=== PATIENT | female | born 1960 | race African-American/Black ===

== ENCOUNTER 2018-08-20 09:48 | Emergency (ER) | payer MEDICAID, OTHER ==
[~2018-08-20] VITALS: Ht 165.1 cm; Wt 106.0 kg
[~2018-08-20 09:48] MED LIST: ACET-3161 PO; ASPI-1079 PO; GABAPENTIN PO; LEVPEN SQ; LISINOPRIL PO; METF500T PO
[2018-08-20] MEDS ORDERED: KETOROLAC 30MG/ML VIAL IV STA (10:16)
[2018-08-20] MEDS ORDERED: SODIUM CHLORIDE 0.9% 1,000 ML IV ONE (10:16)
[2018-08-20 10:47] LABS: BASOPHILS % 0.3 % (0.0-2.0); EOSINOPHILS % 4.3 % (0.0-5.0); HEMATOCRIT. 38.8 % (36.0-48.0); LYMPHOCYTES % 38.3 % (20.0-50.0); MEAN CORPUSCULAR HEMOGLOBIN 27.5 pg (28.0-32.0); MONOCYTES % 8.5 % (2.0-8.0); NEUTROPHILS % 48.6 % (40.0-76.0); PLATELET 235 x1000/uL (130-400); RED BLOOD CELL COUNT 4.73 mill/uL (4.2-5.4); RED CELL DISTRIBUTION WIDTH 13.9 % (11.6-14.6)
[2018-08-20 10:52] LABS: CHLORIDE 104 mEq/L (98-107)
[2018-08-20 11:03] LABS: CLARITY URINE CLEAR (CLEAR); COLOR URINE YELLOW (YELLOW); KETONES URINE NEGATIVE (NEGATIVE); LEUKOCYTE ESTERASE URINE 1+ (NEGATIVE); NITRITE URINE NEGATIVE (NEGATIVE); OCCULT BLOOD URINE NEGATIVE (NEGATIVE); PH URINE 5.5 (4.5-8.0); PROTEIN URINE 1+ (NEGATIVE); SPECIFIC GRAVITY URINE 1.017 (1.005-1.030); UROBILINOGEN URINE 0.2 E.U./dL (0.2-1.0)
[2018-08-20 12:40] VITALS: BP 105/66
== END 2018-08-20 12:51 | disposition home or self-care (01) ==
LOC: ER 09:48
DX: N39.0 Urinary tract infection, site not specified (principal); K80.80 Other cholelithiasis without obstruction; K76.0 Fatty (change of) liver, not elsewhere classified; E11.9 Type 2 diabetes mellitus without complications; E78.00 Pure hypercholesterolemia, unspecified; I10 Essential (primary) hypertension; Z79.82 Long term (current) use of aspirin; Z79.4 Long term (current) use of insulin; Z90.710 Acquired absence of both cervix and uterus
CPT/HCPCS: 36415; 76700; 76830; 76856; 80053; 81003; 83690; 85025; 87077; 87086; 87186; 96374; 99285; J1885; J7030

== ENCOUNTER 2018-11-25 11:49 | Emergency (ER) | payer MEDICAID ==
[~2018-11-25] VITALS: Ht 167.6 cm; Wt 110.0 kg
[2018-11-25 12:19] VITALS: BP 167/82
== END 2018-11-25 14:54 | disposition home or self-care (01) ==
LOC: ER 13:26
DX: L63.9 Alopecia areata, unspecified (principal); I88.9 Nonspecific lymphadenitis, unspecified; I10 Essential (primary) hypertension; E11.9 Type 2 diabetes mellitus without complications; Z98.890 Other specified postprocedural states; Z79.82 Long term (current) use of aspirin; Z79.4 Long term (current) use of insulin; Z79.899 Other long term (current) drug therapy
CPT/HCPCS: 99283

== ENCOUNTER 2019-01-19 12:59 | Emergency (ER) | payer MEDICAID ==
[~2019-01-19] VITALS: Ht 170.2 cm; Wt 111.0 kg
[2019-01-19 14:57] LABS: CLARITY URINE CLEAR (CLEAR); COLOR URINE YELLOW (YELLOW); KETONES URINE NEGATIVE (NEGATIVE); LEUKOCYTE ESTERASE URINE NEGATIVE (NEGATIVE); NITRITE URINE NEGATIVE (NEGATIVE); OCCULT BLOOD URINE NEGATIVE (NEGATIVE); PROTEIN URINE NEGATIVE (NEGATIVE); SPECIFIC GRAVITY URINE 1.012 (1.005-1.030); UROBILINOGEN URINE 0.2 E.U./dL (0.2-1.0)
[2019-01-19] MEDS ORDERED: ACETAMINOPHEN 325MG TABLET PO ONE (22:00)
[2019-01-19] MEDS ORDERED: OSELTAMIVIR 75MG CAPSULE PO ONE (22:00)
[2019-01-19] MEDS ORDERED: ONDANSETRON 4MG ODT PO ONE (22:00)
[2019-01-19 23:05] VITALS: BP 110/61
== END 2019-01-19 23:38 | disposition home or self-care (01) ==
LOC: ER 12:59
DX: J10.1 Influenza due to other identified influenza virus with other respiratory manifestations (principal); E11.9 Type 2 diabetes mellitus without complications; I10 Essential (primary) hypertension; E66.01 Morbid (severe) obesity due to excess calories; Z68.38 Body mass index [BMI] 38.0-38.9, adult; Z98.890 Other specified postprocedural states; Z79.4 Long term (current) use of insulin; Z79.82 Long term (current) use of aspirin
CPT/HCPCS: 81003; 87804; 99284; Q0162

== ENCOUNTER 2019-07-31 14:12 | Inpatient (IN) | payer MEDICAID ==
[~2019-07-31] VITALS: Ht 170.2 cm; Wt 107.5 kg
[2019-07-31] MEDS ORDERED: ASPIRIN 81MG TABLET PO ONE (16:15)
[2019-07-31 17:00] LABS: BASOPHILS % 0.4 % (0.0-2.0); HEMATOCRIT. 37.4 % (36.0-48.0); HEMOGLOBIN. 12.5 g/dL (12.0-16.0); LYMPHOCYTES % 42.6 % (20.0-50.0); MEAN CORPUSCULAR HEMOGLOBIN 27.4 pg (28.0-32.0); MEAN CORPUSCULAR VOLUME 82.4 fL (81.0-99.0); MEAN PLATELET VOLUME 10.4 fl (7.4-10.4); MONOCYTES % 8.2 % (2.0-8.0); NEUTROPHILS % 42.8 % (40.0-76.0); PLATELET 202 x1000/uL (130-400); RED BLOOD CELL COUNT 4.54 mill/uL (4.2-5.4); RED CELL DISTRIBUTION WIDTH 14.4 % (11.6-14.6)
[2019-07-31 17:03] LABS: CHLORIDE 109 mEq/L (98-107)
[2019-07-31 17:08] LABS: PARTIAL THROMBOPLASTIN TIME 28.8 sec (23.4-31.0); PROTHROMBIN TIME 10.8 sec (9.6-11.0)
[2019-07-31 17:46] LABS: CLARITY URINE CLEAR (CLEAR); COLOR URINE YELLOW (YELLOW); KETONES URINE NEGATIVE (NEGATIVE); LEUKOCYTE ESTERASE URINE NEGATIVE (NEGATIVE); NITRITE URINE NEGATIVE (NEGATIVE); OCCULT BLOOD URINE NEGATIVE (NEGATIVE); PROTEIN URINE 1+ (NEGATIVE); SPECIFIC GRAVITY URINE 1.021 (1.005-1.030); UROBILINOGEN URINE 0.2 E.U./dL (0.2-1.0)
[2019-07-31] MEDS ORDERED: DEXTROSE 50% WATER 50ML SYRINGE IV PRN (21:15)
[2019-07-31] MEDS ORDERED: KETOROLAC 15MG/ML VIAL IV PRN (21:15)
[2019-07-31] MEDS ORDERED: DOCUSATE SODIUM 100MG CAPSULE PO PRN (21:15)
[2019-07-31] MEDS ORDERED: MAGNESIUM/ALUMINUM HYDROXIDE/SIMETHICONE 30ML UDC PO PRN (21:15)
[2019-07-31] MEDS ORDERED: ACETAMINOPHEN 325MG TABLET PO PRN (21:15)
[2019-07-31] MEDS ORDERED: LORAZEPAM 0.5MG TABLET PO PRN (21:15)
[2019-07-31] MEDS ORDERED: NITROGLYCERIN 0.4MG TABLET SL SL PRN (21:15)
[2019-07-31] MEDS ORDERED: GUAIFENESIN 200MG/10ML SUGAR FREE UDC PO PRN (21:15)
[2019-07-31] MEDS ORDERED: CLONIDINE 0.1MG TABLET PO PRN (21:15)
[2019-07-31] MEDS ORDERED: ZOLPIDEM TARTRATE 5MG TABLET PO PRN (21:15)
[2019-07-31] MEDS ORDERED: IPRATROPIUM/ALBUTEROL 0.5-3(2.5)MG/3ML NEB HHN PRN (21:15)
[2019-07-31] MEDS ORDERED: ONDANSETRON HCL 4MG/2ML INJ IV PRN (21:15)
[2019-07-31] MEDS ORDERED: INSULIN GLARGINE UD 100 UNITS/ML SYR SUBCUT SCH (22:00)
[2019-07-31] MEDS ORDERED: SIMV20TA6 PO (23:27)
[2019-07-31] MEDS ORDERED: INSU100I24 SQ (23:27)
[2019-07-31 23:29] VITALS: BP 142/64
[2019-07-31 23:37] LABS: LDL CHOLESTEROL 84 mg/dL (5-100)
[2019-07-31 23:38] LABS: CREATINE KINASE 128 IU/L (26-192); HDL CHOLESTEROL 35 mg/dL (40-59)
[2019-07-31 23:40] LABS: CREATINE KINASE MB FRACTION < 1.0 ng/mL (0.5-3.6)
[2019-08-01 00:01] VITALS: BP 123/63
[2019-08-01 04:00] VITALS: BP 123/66
[2019-08-01] MEDS ORDERED: BLOOD SUGAR DIAGNOSTIC STRIP TEST SCH (07:10)
[2019-08-01] MEDS ORDERED: INSULIN LISPRO 100 UNITS/ML SUBCUT SCH (07:40)
[2019-08-01 08:00] VITALS: BP 104/68
[2019-08-01] MEDS: FAMOTIDINE 20MG TABLET PO SCH ×2 (09:00→09:35)
[2019-08-01] MEDS ORDERED: METOPROLOL TARTRATE 25MG TABLET PO SCH (09:00)
[2019-08-01] MEDS ORDERED: ENOXAPARIN 30MG/0.3ML SYR SUBCUT SCH (09:00)
[2019-08-01] MEDS ORDERED: ASPIRIN 325MG EC TABLET PO SCH (09:00)
[2019-08-01 09:27] LABS: CREATINE KINASE 102 IU/L (26-192)
[2019-08-01 09:29] LABS: CREATINE KINASE MB FRACTION < 1.0 ng/mL (0.5-3.6)
[2019-08-01 10:59] VITALS: BP 104/68
[2019-08-01] MEDS ORDERED: INSULIN GLARGINE UD 100 UNITS/ML SYR SUBCUT SCH (22:00)
== END 2019-08-01 11:29 | disposition home or self-care (01) | DRG 203 ==
LOC: ER 14:33 → 8WST 20:49 → EDBEDREQ 21:08 → EDBEDREQTM 21:08 → ENRESERV 21:10
PROVIDERS: ADMIT Internal Medicine; ATTEND Internal Medicine
DX: R07.89 Other chest pain (principal); E11.65 Type 2 diabetes mellitus with hyperglycemia; E66.9 Obesity, unspecified; E78.1 Pure hyperglyceridemia; I10 Essential (primary) hypertension; Z82.49 Family history of ischemic heart disease and other diseases of the circulatory system; Z83.3 Family history of diabetes mellitus; Z68.37 Body mass index [BMI] 37.0-37.9, adult; Z79.899 Other long term (current) drug therapy; Z79.82 Long term (current) use of aspirin; Z79.4 Long term (current) use of insulin
CPT/HCPCS: 36415; 71045; 80061; 81003; 82550; 82553; 82962; 83036; 83880; 84484; 93005; 96372; 99285; J1650; J1815

== ENCOUNTER 2019-08-06 08:12 | Emergency (ER) | payer MEDICAID ==
[~2019-08-06] VITALS: Ht 167.6 cm; Wt 108.0 kg
[~2019-08-06 08:12] MED LIST changes: +INSU100I24 SQ; -LEVPEN SQ; -METF500T PO; +SIMV20TA6 PO
[2019-08-06] MEDS ORDERED: SODIUM CHLORIDE 0.9% 1,000 ML IV ONE (08:34)
[2019-08-06] MEDS ORDERED: KETOROLAC 30MG/ML VIAL IV STA (08:34)
[2019-08-06] MEDS ORDERED: METOCLOPRAMIDE HCL 10MG/2ML VIAL IV ONE (08:45)
[2019-08-06 09:03] LABS: BASOPHILS % 0.6 % (0.0-2.0); EOSINOPHILS % 7.4 % (0.0-5.0); HEMATOCRIT. 37.6 % (36.0-48.0); HEMOGLOBIN. 12.8 g/dL (12.0-16.0); LYMPHOCYTES % 43.3 % (20.0-50.0); MEAN CORPUSCULAR HEMOGLOBIN 27.8 pg (28.0-32.0); MEAN CORPUSCULAR VOLUME 81.7 fL (81.0-99.0); MEAN PLATELET VOLUME 9.4 fl (7.4-10.4); MONOCYTES % 8.9 % (2.0-8.0); NEUTROPHILS % 39.8 % (40.0-76.0); PLATELET 202 x1000/uL (130-400); RED CELL DISTRIBUTION WIDTH 14.4 % (11.6-14.6)
[2019-08-06 09:07] LABS: CHLORIDE 105 mEq/L (98-107)
[2019-08-06] MEDS ORDERED: IOHEXOL-350 100 ML BOTTLE ONE (10:01)
[2019-08-06 10:58] VITALS: BP 141/67
== END 2019-08-06 11:04 | disposition home or self-care (01) ==
LOC: ER 08:12
DX: R51 Headache (principal); E11.9 Type 2 diabetes mellitus without complications; Z98.890 Other specified postprocedural states; Z79.4 Long term (current) use of insulin; Z79.82 Long term (current) use of aspirin
CPT/HCPCS: 36415; 70496; 71045; 80053; 84484; 85025; 93005; 96374; 96375; 99284; J1885; J2765; J7030; Q9967

== ENCOUNTER 2022-01-21 17:42 | Inpatient (IN) | payer OTHER ==
[~2022-01-21] VITALS: Ht 167.6 cm; Wt 95.3 kg
[~2022-01-21 17:42] MED LIST changes: +CLOT15CR27 TP; +SIMV-43 PO; -SIMV20TA6 PO
[2022-01-21 17:50] VITALS: BP 131/73
[2022-01-21 20:00] VITALS: BP 136/69
[2022-01-21] MEDS ORDERED: DEXTROSE 50% WATER 50ML SYRINGE IV PRN (22:00)
[2022-01-21] MEDS ORDERED: ONDA4TAB50 MT (22:07)
[2022-01-21] MEDS ORDERED: METH-773 MT (22:07)
[2022-01-21] MEDS ORDERED: ATOR20TA65 MT (22:07)
[2022-01-21] MEDS ORDERED: AMLO10TA80 MT (22:07)
[2022-01-21] MEDS ORDERED: CLON-457 MT (22:07)
[2022-01-21] MEDS ORDERED: CARV3.1242 MT (22:07)
[2022-01-21] MEDS ORDERED: HYDR-4009 MT (22:19)
[2022-01-21] MEDS ORDERED: DULO30CA2 MT (22:19)
[2022-01-21] MEDS ORDERED: DOCU250C69 PO (22:19)
[2022-01-21] MEDS ORDERED: LISI10TA26 PO (22:19)
[2022-01-21] MEDS ORDERED: ENOX40DI8 SQ (22:19)
[2022-01-21] MEDS ORDERED: INSU100V37 SQ (22:19)
[2022-01-21] MEDS ORDERED: GABA-532 MT (22:19)
[2022-01-21] MEDS ORDERED: LANTUSUD SUBCUT (22:19)
[2022-01-21] MEDS: BLOOD SUGAR DIAGNOSTIC STRIP TEST SCH (22:30)
[2022-01-21] MEDS ORDERED: NALOXONE HCL 0.4 MG/ML 1ML VIAL IV PRN (23:45)
[2022-01-22] VITALS: BP 125/68
[2022-01-22] MEDS ORDERED: PIPERACILLIN/TAZOBACTAM 3.375G in DEXT 5% WATER 50ML IV SCH ×2
[2022-01-22] MEDS: INSULIN LISPRO 100 UNITS/ML SUBCUT SCH ×5 (00:27→20:51)
[2022-01-22] MEDS ORDERED: VANCOMYCIN 1500MG in DEXTROSE 5% WATER 250ML IV SCH (01:00)
[2022-01-22 04:00] VITALS: BP 113/60
[2022-01-22] MEDS: BLOOD SUGAR DIAGNOSTIC STRIP TEST SCH ×4 (06:26→20:52)
[2022-01-22] MEDS ORDERED: BLOOD SUGAR DIAGNOSTIC STRIP TEST SCH (06:45)
[2022-01-22 07:10] LABS: BASOPHILS % 0.3 % (0.0-2.0); EOSINOPHILS % 1.7 % (0.0-5.0); HEMOGLOBIN. 8.6 g/dL (12.0-16.0); LYMPHOCYTES % 14.4 % (20.0-50.0); MEAN CORPUSCULAR HEMOGLOBIN 24.8 pg (28.0-32.0); MEAN CORPUSCULAR VOLUME 77.3 fL (81.0-99.0); MEAN PLATELET VOLUME 8.7 fl (7.4-10.4); MONOCYTES % 10.7 % (2.0-8.0); NEUTROPHILS % 72.9 % (40.0-76.0); PLATELET 377 x1000/uL (130-400); RED BLOOD CELL COUNT 3.49 mill/uL (4.2-5.4); RED CELL DISTRIBUTION WIDTH 14.7 % (11.6-14.6)
[2022-01-22] MEDS ORDERED: INSULIN LISPRO 100 UNITS/ML SUBCUT SCH (07:15)
[2022-01-22 08:00] VITALS: BP 127/61
[2022-01-22] MEDS: GABAPENTIN 300MG CAPSULE PO SCH ×3 (09:19→16:43)
[2022-01-22] MEDS: AMLODIPINE 10MG TABLET PO SCH (09:19)
[2022-01-22] MEDS: CARVEDILOL 3.125 MG TABLET PO SCH ×2 (09:19→20:52)
[2022-01-22] MEDS: DULOXETINE HCL 30MG DR CAPSULE PO SCH (09:19)
[2022-01-22] MEDS: ATORVASTATIN CALCIUM 20MG TABLET PO SCH (09:19)
[2022-01-22] MEDS: HYDROCODONE/ACETAMINOPHEN 10/325MG TABLET PO PRN ×2 (09:20→16:44)
[2022-01-22] MEDS ORDERED: PIPERACILLIN/TAZOBACTAM 3.375 G in DEXTROSE 5% WATER 50 ML IV SCH (10:00)
[2022-01-22] MEDS: ENOXAPARIN 30MG/0.3ML SYR SUBCUT SCH ×2 (10:02→20:52)
[2022-01-22 12:00] VITALS: BP 102/53
[2022-01-22 12:58] LABS: CLARITY URINE CLOUDY (CLEAR); COLOR URINE YELLOW (YELLOW); KETONES URINE TRACE (NEGATIVE); LEUKOCYTE ESTERASE URINE TRACE (NEGATIVE); NITRITE URINE NEGATIVE (NEGATIVE); OCCULT BLOOD URINE 3+ (NEGATIVE); PROTEIN URINE 1+ (NEGATIVE); UROBILINOGEN URINE 0.2 E.U./dL (0.2-1.0)
[2022-01-22] MEDS: PIPERACILLIN/TAZOBACTAM 3.375G in DEXT 5% WATER 50ML IV SCH ×2 (15:10→22:12)
[2022-01-22 16:00] VITALS: BP 109/67
[2022-01-22 20:00] VITALS: BP 107/60
[2022-01-23] VITALS: BP 127/70
[2022-01-23] MEDS: HYDROCODONE/ACETAMINOPHEN 10/325MG TABLET PO PRN ×4 (01:04→16:33)
[2022-01-23 04:00] VITALS: BP 129/75
[2022-01-23] MEDS ORDERED: VANCOMYCIN 1G PREMIX 200 ML IV SCH (06:00)
[2022-01-23] MEDS: INSULIN LISPRO 100 UNITS/ML SUBCUT SCH ×4 (06:30→20:48)
[2022-01-23] MEDS: PIPERACILLIN/TAZOBACTAM 3.375G in DEXT 5% WATER 50ML IV SCH ×3 (06:31→21:09)
[2022-01-23] MEDS: BLOOD SUGAR DIAGNOSTIC STRIP TEST SCH ×4 (06:31→20:48)
[2022-01-23 08:00] VITALS: BP 115/61
[2022-01-23] MEDS: CARVEDILOL 3.125 MG TABLET PO SCH ×2 (08:36→21:09)
[2022-01-23] MEDS: DULOXETINE HCL 30MG DR CAPSULE PO SCH (08:36)
[2022-01-23] MEDS: ATORVASTATIN CALCIUM 20MG TABLET PO SCH (08:36)
[2022-01-23] MEDS: ENOXAPARIN 30MG/0.3ML SYR SUBCUT SCH ×2 (08:36→21:08)
[2022-01-23] MEDS: AMLODIPINE 10MG TABLET PO SCH (08:37)
[2022-01-23] MEDS: GABAPENTIN 300MG CAPSULE PO SCH ×3 (08:37→16:32)
[2022-01-23 12:00] VITALS: BP 107/60
[2022-01-23 16:00] VITALS: BP 113/58
[2022-01-23 20:00] VITALS: BP 114/64
[2022-01-24] VITALS: BP 116/65
[2022-01-24 04:00] VITALS: BP 102/62
[2022-01-24] MEDS ORDERED: VANCOMYCIN 1G PREMIX 200 ML IV SCH (06:00)
[2022-01-24] MEDS: PIPERACILLIN/TAZOBACTAM 3.375G in DEXT 5% WATER 50ML IV SCH ×3 (06:31→21:56)
[2022-01-24] MEDS: INSULIN LISPRO 100 UNITS/ML SUBCUT SCH ×4 (06:31→21:57)
[2022-01-24] MEDS: BLOOD SUGAR DIAGNOSTIC STRIP TEST SCH ×4 (06:31→21:56)
[2022-01-24 06:44] LABS: BASOPHILS % 0.4 % (0.0-2.0); EOSINOPHILS % 3.2 % (0.0-5.0); HEMATOCRIT. 24.8 % (36.0-48.0); HEMOGLOBIN. 8.1 g/dL (12.0-16.0); LYMPHOCYTES % 15.3 % (20.0-50.0); MEAN CORPUSCULAR HEMOGLOBIN 24.8 pg (28.0-32.0); MEAN CORPUSCULAR VOLUME 76.1 fL (81.0-99.0); MONOCYTES % 9.3 % (2.0-8.0); NEUTROPHILS % 71.8 % (40.0-76.0); PLATELET 359 x1000/uL (130-400); RED BLOOD CELL COUNT 3.26 mill/uL (4.2-5.4); RED CELL DISTRIBUTION WIDTH 14.8 % (11.6-14.6)
[2022-01-24 07:00] LABS: VANCOMYCIN TROUGH 23.4 ug/mL (5.0-10.0)
[2022-01-24 08:00] VITALS: BP 125/63
[2022-01-24] MEDS: ENOXAPARIN 30MG/0.3ML SYR SUBCUT SCH ×2 (09:22→21:55)
[2022-01-24] MEDS: DULOXETINE HCL 30MG DR CAPSULE PO SCH (09:23)
[2022-01-24] MEDS: ATORVASTATIN CALCIUM 20MG TABLET PO SCH (09:23)
[2022-01-24] MEDS: HYDROCODONE/ACETAMINOPHEN 10/325MG TABLET PO PRN (09:23)
[2022-01-24] MEDS: AMLODIPINE 10MG TABLET PO SCH (09:24)
[2022-01-24] MEDS: CARVEDILOL 3.125 MG TABLET PO SCH ×2 (09:24→21:56)
[2022-01-24] MEDS: GABAPENTIN 300MG CAPSULE PO SCH ×3 (09:24→17:58)
[2022-01-24 12:00] VITALS: BP 104/61
[2022-01-24] MEDS ORDERED: MORPHINE SULFATE 2 MG/ML CPJ (NOT FOR IM USE) IV NR (12:46)
[2022-01-24 16:00] VITALS: BP 135/51
[2022-01-24 20:00] VITALS: BP 137/75
[2022-01-25] VITALS: BP 109/64
[2022-01-25 04:00] VITALS: BP 100/69
[2022-01-25] MEDS: PIPERACILLIN/TAZOBACTAM 3.375G in DEXT 5% WATER 50ML IV SCH ×3 (05:16→21:24)
[2022-01-25] MEDS: BLOOD SUGAR DIAGNOSTIC STRIP TEST SCH ×4 (06:50→21:18)
[2022-01-25] MEDS: INSULIN LISPRO 100 UNITS/ML SUBCUT SCH ×4 (06:50→21:00)
[2022-01-25 08:00] VITALS: BP 169/86
[2022-01-25] MEDS: CARVEDILOL 3.125 MG TABLET PO SCH ×2 (10:13→21:18)
[2022-01-25] MEDS: ENOXAPARIN 30MG/0.3ML SYR SUBCUT SCH ×2 (10:13→21:17)
[2022-01-25] MEDS: AMLODIPINE 10MG TABLET PO SCH (10:14)
[2022-01-25] MEDS: GABAPENTIN 300MG CAPSULE PO SCH ×3 (10:14→17:56)
[2022-01-25] MEDS: DULOXETINE HCL 30MG DR CAPSULE PO SCH (10:14)
[2022-01-25] MEDS: ATORVASTATIN CALCIUM 20MG TABLET PO SCH (10:14)
[2022-01-25 12:00] VITALS: BP 143/79
[2022-01-25] MEDS: VANCOMYCIN 750 MG in DEXT 5% WATER 250 ML IV SCH (13:49)
[2022-01-25] MEDS ORDERED: VANCOMYCIN 750MG PREMIX 150 ML IV SCH (14:00)
[2022-01-25] MEDS: ACETAMINOPHEN 650MG/20.3ML UDC PO PRN (14:57)
[2022-01-25 16:00] VITALS: BP 126/67
[2022-01-25 20:00] VITALS: BP 130/66
[2022-01-25] MEDS: HYDROCODONE/ACETAMINOPHEN 10/325MG TABLET PO PRN (20:14)
[2022-01-26] VITALS: BP 121/82
[2022-01-26 04:00] VITALS: BP 123/61
[2022-01-26] MEDS: INSULIN LISPRO 100 UNITS/ML SUBCUT SCH ×4 (05:33→21:00)
[2022-01-26] MEDS: PIPERACILLIN/TAZOBACTAM 3.375G in DEXT 5% WATER 50ML IV SCH ×3 (05:33→23:51)
[2022-01-26] MEDS: HYDROCODONE/ACETAMINOPHEN 10/325MG TABLET PO PRN ×3 (05:33→18:25)
[2022-01-26] MEDS: BLOOD SUGAR DIAGNOSTIC STRIP TEST SCH ×4 (05:33→21:11)
[2022-01-26 08:00] VITALS: BP 128/70
[2022-01-26] MEDS ORDERED: IOHEXOL-350 100 ML BOTTLE ONE (09:58)
[2022-01-26] MEDS: ENOXAPARIN 30MG/0.3ML SYR SUBCUT SCH ×2 (10:24→21:11)
[2022-01-26] MEDS: CARVEDILOL 3.125 MG TABLET PO SCH ×2 (10:24→21:11)
[2022-01-26] MEDS: DULOXETINE HCL 30MG DR CAPSULE PO SCH (10:24)
[2022-01-26] MEDS: ATORVASTATIN CALCIUM 20MG TABLET PO SCH (10:24)
[2022-01-26] MEDS: GABAPENTIN 300MG CAPSULE PO SCH ×3 (10:24→17:55)
[2022-01-26] MEDS: AMLODIPINE 10MG TABLET PO SCH (10:25)
[2022-01-26 12:00] VITALS: BP 140/78
[2022-01-26] MEDS: VANCOMYCIN 750 MG in DEXT 5% WATER 250 ML IV SCH (14:42)
[2022-01-26 16:00] VITALS: BP 136/64
[2022-01-27] VITALS: BP 127/66
[2022-01-27] MEDS: ACETAMINOPHEN 650MG/20.3ML UDC PO PRN (01:23)
[2022-01-27] MEDS: BLOOD SUGAR DIAGNOSTIC STRIP TEST SCH ×4 (06:18→20:43)
[2022-01-27] MEDS: INSULIN LISPRO 100 UNITS/ML SUBCUT SCH ×4 (06:18→20:43)
[2022-01-27 07:39] LABS: BASOPHILS % 0.2 % (0.0-2.0); EOSINOPHILS % 2.6 % (0.0-5.0); HEMATOCRIT. 26.1 % (36.0-48.0); HEMOGLOBIN. 8.5 g/dL (12.0-16.0); LYMPHOCYTES % 14.7 % (20.0-50.0); MEAN CORPUSCULAR HEMOGLOBIN 24.6 pg (28.0-32.0); MEAN CORPUSCULAR VOLUME 75.8 fL (81.0-99.0); MEAN PLATELET VOLUME 8.8 fl (7.4-10.4); MONOCYTES % 8.8 % (2.0-8.0); NEUTROPHILS % 73.7 % (40.0-76.0); PLATELET 390 x1000/uL (130-400); RED BLOOD CELL COUNT 3.45 mill/uL (4.2-5.4); RED CELL DISTRIBUTION WIDTH 14.8 % (11.6-14.6)
[2022-01-27 07:41] LABS: CHLORIDE 112 mEq/L (98-107)
[2022-01-27 08:00] VITALS: BP 112/73
[2022-01-27] MEDS: GABAPENTIN 300MG CAPSULE PO SCH ×3 (08:40→16:42)
[2022-01-27] MEDS: AMLODIPINE 10MG TABLET PO SCH (08:41)
[2022-01-27] MEDS: DULOXETINE HCL 30MG DR CAPSULE PO SCH (08:41)
[2022-01-27] MEDS: CARVEDILOL 3.125 MG TABLET PO SCH ×2 (08:41→20:42)
[2022-01-27] MEDS: ENOXAPARIN 30MG/0.3ML SYR SUBCUT SCH ×2 (08:41→20:42)
[2022-01-27] MEDS: ATORVASTATIN CALCIUM 20MG TABLET PO SCH (08:44)
[2022-01-27 12:00] VITALS: BP 120/60
[2022-01-27 16:00] VITALS: BP 124/67
[2022-01-27 20:00] VITALS: BP 135/68
[2022-01-28] VITALS: BP 140/69
[2022-01-28 04:00] VITALS: BP 144/77
[2022-01-28] MEDS: BLOOD SUGAR DIAGNOSTIC STRIP TEST SCH ×4 (06:15→21:38)
[2022-01-28] MEDS: INSULIN LISPRO 100 UNITS/ML SUBCUT SCH ×4 (06:16→21:00)
[2022-01-28 08:00] VITALS: BP 146/78
[2022-01-28] MEDS: AMLODIPINE 10MG TABLET PO SCH (09:45)
[2022-01-28] MEDS: GABAPENTIN 300MG CAPSULE PO SCH ×3 (09:45→17:32)
[2022-01-28] MEDS: ATORVASTATIN CALCIUM 20MG TABLET PO SCH (09:45)
[2022-01-28] MEDS: ENOXAPARIN 30MG/0.3ML SYR SUBCUT SCH ×2 (09:45→21:38)
[2022-01-28] MEDS: DULOXETINE HCL 30MG DR CAPSULE PO SCH (09:45)
[2022-01-28] MEDS: CARVEDILOL 3.125 MG TABLET PO SCH ×3 (09:46→21:39)
[2022-01-28 12:00] VITALS: BP 139/75
[2022-01-28 16:00] VITALS: BP 133/72
[2022-01-28 20:00] VITALS: BP 107/81
[2022-01-29] VITALS: BP 146/76
[2022-01-29] MEDS: DEXT 5%/0.45% NACL KCL 20MEQ/L 1,000 ML IV SCH ×3 (00:31→20:55)
[2022-01-29 04:00] VITALS: BP 145/80
[2022-01-29] MEDS: INSULIN LISPRO 100 UNITS/ML SUBCUT SCH ×4 (06:01→20:55)
[2022-01-29] MEDS: BLOOD SUGAR DIAGNOSTIC STRIP TEST SCH ×4 (06:01→20:55)
[2022-01-29 06:27] LABS: BASOPHILS % 0.3 % (0.0-2.0); EOSINOPHILS % 2.1 % (0.0-5.0); HEMATOCRIT. 26.9 % (36.0-48.0); HEMOGLOBIN. 8.8 g/dL (12.0-16.0); LYMPHOCYTES % 20.5 % (20.0-50.0); MEAN CORPUSCULAR HEMOGLOBIN 24.8 pg (28.0-32.0); MEAN CORPUSCULAR VOLUME 75.5 fL (81.0-99.0); MEAN PLATELET VOLUME 8.6 fl (7.4-10.4); MONOCYTES % 8.7 % (2.0-8.0); NEUTROPHILS % 68.4 % (40.0-76.0); PLATELET 415 x1000/uL (130-400); RED BLOOD CELL COUNT 3.56 mill/uL (4.2-5.4); RED CELL DISTRIBUTION WIDTH 15.1 % (11.6-14.6)
[2022-01-29 07:37] LABS: CHLORIDE 113 mEq/L (98-107)
[2022-01-29] MEDS: ENOXAPARIN 30MG/0.3ML SYR SUBCUT SCH ×2 (07:48→21:51)
[2022-01-29 08:00] VITALS: BP 134/77
[2022-01-29] MEDS: AMLODIPINE 10MG TABLET PO SCH (09:00)
[2022-01-29] MEDS: GABAPENTIN 300MG CAPSULE PO SCH ×3 (09:00→17:25)
[2022-01-29] MEDS: CARVEDILOL 3.125 MG TABLET PO SCH ×2 (09:00→21:00)
[2022-01-29] MEDS: ATORVASTATIN CALCIUM 20MG TABLET PO SCH (09:00)
[2022-01-29] MEDS: DULOXETINE HCL 30MG DR CAPSULE PO SCH (09:00)
[2022-01-29] MEDS ORDERED: VANCOMYCIN HCL 1 GM/VIAL ONE (10:35)
[2022-01-29] MEDS ORDERED: LIDOCAINE HCL/EPINEPHRINE 1%-EPI 1:100,000 30 ML VIAL INFIL ONE (10:35)
[2022-01-29] MEDS ORDERED: POLYMYXIN B SULFATE 500000 UNITS/VIAL ONE ×2 (10:36→12:37)
[2022-01-29 12:00] VITALS: BP 135/75
[2022-01-29 12:05] LABS: INR 1.2; PROTHROMBIN TIME 12.7 sec (9.6-11.0)
[2022-01-29] MEDS ORDERED: FENTANYL CITRATE/PF 50MCG/ML 2ML VIAL ONE (12:33)
[2022-01-29] MEDS ORDERED: PROPOFOL 200MG/20ML VIAL IV ONE ×2 (12:33→13:26)
[2022-01-29] MEDS ORDERED: MIDAZOLAM HCL 2 MG/2 ML VIAL ONE (12:33)
[2022-01-29] MEDS ORDERED: ROPIVACAINE HCL 10MG/ML 20 ML VIAL EPI ONE (12:35)
[2022-01-29] MEDS ORDERED: BUPIVACAINE HCL 0.5% (5MG/ML) 50ML ONE (12:53)
[2022-01-29] MEDS ORDERED: DEXAMETHASONE 4MG/ML 1ML VIAL ONE (13:26)
[2022-01-29] MEDS ORDERED: ONDANSETRON HCL 4MG/2ML INJ ONE (13:26)
[2022-01-29] MEDS ORDERED: ONDANSETRON HCL 4MG/2ML INJ IV PRN (14:15)
[2022-01-29] MEDS ORDERED: MEPERIDINE HCL/PF 25MG/ML CPJ IV PRN (14:15)
[2022-01-29] MEDS ORDERED: HYDROMORPHONE HCL/PF 2MG/ML CPJ IV PRN (14:15)
[2022-01-29] MEDS ORDERED: LABETALOL 5MG/ML SYR 20 MG/4 ML SYRINGE IV PRN (14:15)
[2022-01-29 16:00] VITALS: BP 143/88
[2022-01-29] MEDS: HYDROMORPHONE HCL/PF 2MG/ML CPJ IV PRN (17:25)
[2022-01-29 20:00] VITALS: BP 137/69
[2022-01-29] MEDS: CEFAZOLIN 2,000 MG in DEXT 5% WATER 100 ML IV SCH (21:00)
[2022-01-30] VITALS: BP 128/72
[2022-01-30] MEDS: HYDROMORPHONE HCL/PF 2MG/ML CPJ IV PRN ×4 (01:46→20:09)
[2022-01-30] MEDS: HYDROCODONE/ACETAMINOPHEN 5/325MG TABLET PO PRN ×4 (02:23→22:43)
[2022-01-30 04:00] VITALS: BP 153/72
[2022-01-30] MEDS: DEXT 5%/0.45% NACL KCL 20MEQ/L 1,000 ML IV SCH ×2 (05:55→16:52)
[2022-01-30] MEDS: BLOOD SUGAR DIAGNOSTIC STRIP TEST SCH ×4 (05:55→20:08)
[2022-01-30] MEDS: CEFAZOLIN 2,000 MG in DEXT 5% WATER 100 ML IV SCH ×2 (05:55→13:20)
[2022-01-30] MEDS: INSULIN LISPRO 100 UNITS/ML SUBCUT SCH ×4 (05:56→20:08)
[2022-01-30 07:00] LABS: CHLORIDE 113 mEq/L (98-107)
[2022-01-30 07:06] LABS: BASOPHILS % 0.1 % (0.0-2.0); EOSINOPHILS % 0.4 % (0.0-5.0); HEMATOCRIT. 26.6 % (36.0-48.0); HEMOGLOBIN. 8.6 g/dL (12.0-16.0); MEAN CORPUSCULAR HEMOGLOBIN 24.7 pg (28.0-32.0); MEAN CORPUSCULAR VOLUME 76.2 fL (81.0-99.0); MEAN PLATELET VOLUME 8.7 fl (7.4-10.4); MONOCYTES % 9.6 % (2.0-8.0); NEUTROPHILS % 70.9 % (40.0-76.0); PLATELET 402 x1000/uL (130-400); RED BLOOD CELL COUNT 3.49 mill/uL (4.2-5.4); RED CELL DISTRIBUTION WIDTH 14.9 % (11.6-14.6)
[2022-01-30 08:00] VITALS: BP 135/78
[2022-01-30] MEDS: DULOXETINE HCL 30MG DR CAPSULE PO SCH (09:40)
[2022-01-30] MEDS: ATORVASTATIN CALCIUM 20MG TABLET PO SCH (09:40)
[2022-01-30] MEDS: CARVEDILOL 3.125 MG TABLET PO SCH ×2 (09:41→20:09)
[2022-01-30] MEDS: GABAPENTIN 300MG CAPSULE PO SCH ×3 (09:51→16:53)
[2022-01-30] MEDS: ENOXAPARIN 30MG/0.3ML SYR SUBCUT SCH ×2 (09:51→20:08)
[2022-01-30] MEDS: AMLODIPINE 10MG TABLET PO SCH (09:52)
[2022-01-30 12:00] VITALS: BP 157/78
[2022-01-30 16:00] VITALS: BP 135/69
[2022-01-30] MEDS ORDERED: NALOXONE HCL 0.4MG/ML VIAL IV PRN (16:30)
[2022-01-30 20:00] VITALS: BP 114/72
[2022-01-31] VITALS: BP 139/79
[2022-01-31] MEDS: CEFAZOLIN 2,000 MG in DEXT 5% WATER 100 ML IV SCH ×4 (00:57→21:19)
[2022-01-31] MEDS: DEXT 5%/0.45% NACL KCL 20MEQ/L 1,000 ML IV SCH ×3 (00:58→21:16)
[2022-01-31 04:00] VITALS: BP 145/83
[2022-01-31] MEDS: HYDROCODONE/ACETAMINOPHEN 5/325MG TABLET PO PRN ×2 (05:11→12:47)
[2022-01-31] MEDS: INSULIN LISPRO 100 UNITS/ML SUBCUT SCH ×4 (06:59→21:13)
[2022-01-31] MEDS: BLOOD SUGAR DIAGNOSTIC STRIP TEST SCH ×4 (06:59→21:13)
[2022-01-31 08:00] VITALS: BP 118/79
[2022-01-31] MEDS ORDERED: HYDROMORPHONE HCL/PF 2MG/ML CPJ IV SCH (08:00)
[2022-01-31] MEDS: ATORVASTATIN CALCIUM 20MG TABLET PO SCH (09:26)
[2022-01-31] MEDS: ENOXAPARIN 30MG/0.3ML SYR SUBCUT SCH ×2 (09:26→21:12)
[2022-01-31] MEDS: AMLODIPINE 10MG TABLET PO SCH (09:26)
[2022-01-31] MEDS: DULOXETINE HCL 30MG DR CAPSULE PO SCH (09:27)
[2022-01-31] MEDS: CARVEDILOL 3.125 MG TABLET PO SCH ×2 (09:27→21:12)
[2022-01-31] MEDS: GABAPENTIN 300MG CAPSULE PO SCH ×3 (09:29→17:30)
[2022-01-31 12:00] VITALS: BP 132/79
[2022-01-31 16:00] VITALS: BP 121/70
[2022-01-31 19:34] LABS: TOTAL IRON BINDING CAPACITY 115 ug/dL (250-450)
[2022-01-31 20:00] VITALS: BP 121/81
[2022-02-01] VITALS: BP 125/57
[2022-02-01 04:00] VITALS: BP 160/79
[2022-02-01] MEDS: CEFAZOLIN 2,000 MG in DEXT 5% WATER 100 ML IV SCH ×3 (05:35→21:22)
[2022-02-01] MEDS: BLOOD SUGAR DIAGNOSTIC STRIP TEST SCH ×4 (05:53→21:23)
[2022-02-01] MEDS: INSULIN LISPRO 100 UNITS/ML SUBCUT SCH ×4 (06:30→21:23)
[2022-02-01 08:00] VITALS: BP 104/64
[2022-02-01] MEDS: CARVEDILOL 3.125 MG TABLET PO SCH ×2 (09:00→21:21)
[2022-02-01] MEDS: AMLODIPINE 10MG TABLET PO SCH (09:00)
[2022-02-01] MEDS: DULOXETINE HCL 30MG DR CAPSULE PO SCH (09:21)
[2022-02-01] MEDS: ATORVASTATIN CALCIUM 20MG TABLET PO SCH (09:21)
[2022-02-01] MEDS: ENOXAPARIN 30MG/0.3ML SYR SUBCUT SCH ×2 (09:21→21:22)
[2022-02-01] MEDS: DEXT 5%/0.45% NACL KCL 20MEQ/L 1,000 ML IV SCH ×2 (09:21→18:15)
[2022-02-01] MEDS: HYDROCODONE/ACETAMINOPHEN 5/325MG TABLET PO PRN (09:21)
[2022-02-01] MEDS: GABAPENTIN 300MG CAPSULE PO SCH ×3 (09:21→18:15)
[2022-02-01 12:00] VITALS: BP 158/87
[2022-02-01 16:00] VITALS: BP 155/74
[2022-02-01 21:05] VITALS: BP 132/61
[2022-02-02] VITALS: BP 155/76
[2022-02-02 04:00] VITALS: BP 109/56
[2022-02-02] MEDS: DEXT 5%/0.45% NACL KCL 20MEQ/L 1,000 ML IV SCH (06:14)
[2022-02-02] MEDS: CEFAZOLIN 2,000 MG in DEXT 5% WATER 100 ML IV SCH ×3 (06:14→21:17)
[2022-02-02] MEDS: BLOOD SUGAR DIAGNOSTIC STRIP TEST SCH ×4 (06:14→21:15)
[2022-02-02] MEDS: INSULIN LISPRO 100 UNITS/ML SUBCUT SCH ×4 (06:14→21:17)
[2022-02-02 07:57] LABS: BASOPHILS % 0.4 % (0.0-2.0); EOSINOPHILS % 1.5 % (0.0-5.0); HEMATOCRIT. 24.9 % (36.0-48.0); HEMOGLOBIN. 8.1 g/dL (12.0-16.0); LYMPHOCYTES % 17.6 % (20.0-50.0); MEAN CORPUSCULAR HEMOGLOBIN 24.6 pg (28.0-32.0); MEAN CORPUSCULAR VOLUME 75.5 fL (81.0-99.0); MEAN PLATELET VOLUME 8.6 fl (7.4-10.4); NEUTROPHILS % 71.5 % (40.0-76.0); PLATELET 389 x1000/uL (130-400); RED BLOOD CELL COUNT 3.29 mill/uL (4.2-5.4); RED CELL DISTRIBUTION WIDTH 15.5 % (11.6-14.6)
[2022-02-02 08:00] VITALS: BP 145/76
[2022-02-02 08:12] LABS: CHLORIDE 114 mEq/L (98-107)
[2022-02-02] MEDS: ENOXAPARIN 30MG/0.3ML SYR SUBCUT SCH ×2 (10:04→21:17)
[2022-02-02] MEDS: DULOXETINE HCL 30MG DR CAPSULE PO SCH (10:04)
[2022-02-02] MEDS: AMLODIPINE 10MG TABLET PO SCH (10:04)
[2022-02-02] MEDS: GABAPENTIN 300MG CAPSULE PO SCH ×3 (10:04→18:09)
[2022-02-02] MEDS: ATORVASTATIN CALCIUM 20MG TABLET PO SCH (10:04)
[2022-02-02] MEDS: CARVEDILOL 3.125 MG TABLET PO SCH ×2 (10:05→21:16)
[2022-02-02 12:00] VITALS: BP 109/58
[2022-02-02 16:00] VITALS: BP 115/72
[2022-02-02 20:00] VITALS: BP 138/75
[2022-02-03] VITALS: BP 132/73
[2022-02-03 04:00] VITALS: BP 143/98
[2022-02-03] MEDS: BLOOD SUGAR DIAGNOSTIC STRIP TEST SCH ×4 (05:52→21:23)
[2022-02-03] MEDS: CEFAZOLIN 2,000 MG in DEXT 5% WATER 100 ML IV SCH ×2 (06:00→16:46)
[2022-02-03] MEDS: INSULIN LISPRO 100 UNITS/ML SUBCUT SCH ×4 (06:00→21:00)
[2022-02-03 08:00] VITALS: BP 140/74
[2022-02-03] MEDS: ENOXAPARIN 30MG/0.3ML SYR SUBCUT SCH ×2 (10:14→21:11)
[2022-02-03] MEDS: GABAPENTIN 300MG CAPSULE PO SCH ×3 (10:15→17:53)
[2022-02-03] MEDS: ATORVASTATIN CALCIUM 20MG TABLET PO SCH (10:15)
[2022-02-03] MEDS: DULOXETINE HCL 30MG DR CAPSULE PO SCH (10:15)
[2022-02-03] MEDS: AMLODIPINE 10MG TABLET PO SCH (10:15)
[2022-02-03] MEDS: CARVEDILOL 3.125 MG TABLET PO SCH ×2 (10:15→21:12)
[2022-02-03] MEDS: HYDROCODONE/ACETAMINOPHEN 5/325MG TABLET PO PRN (10:42)
[2022-02-03 12:00] VITALS: BP 142/74
[2022-02-03 16:00] VITALS: BP 131/75
[2022-02-03 20:00] VITALS: BP 142/75
[2022-02-03] MEDS: ACETAMINOPHEN 650MG/20.3ML UDC PO PRN (21:41)
[2022-02-04] VITALS: BP 127/74
[2022-02-04 04:00] VITALS: BP 133/76
[2022-02-04] MEDS: INSULIN LISPRO 100 UNITS/ML SUBCUT SCH ×4 (06:55→21:00)
[2022-02-04] MEDS: BLOOD SUGAR DIAGNOSTIC STRIP TEST SCH ×4 (06:55→21:00)
[2022-02-04 08:00] VITALS: BP 152/73
[2022-02-04] MEDS: ATORVASTATIN CALCIUM 20MG TABLET PO SCH (09:05)
[2022-02-04] MEDS: DULOXETINE HCL 30MG DR CAPSULE PO SCH (09:05)
[2022-02-04] MEDS: ENOXAPARIN 30MG/0.3ML SYR SUBCUT SCH ×2 (09:05→22:10)
[2022-02-04] MEDS: CARVEDILOL 3.125 MG TABLET PO SCH ×2 (09:05→22:09)
[2022-02-04] MEDS: GABAPENTIN 300MG CAPSULE PO SCH ×3 (09:06→17:34)
[2022-02-04] MEDS: AMLODIPINE 10MG TABLET PO SCH (09:06)
[2022-02-04 12:00] VITALS: BP 118/71
[2022-02-04 16:00] VITALS: BP 125/65
[2022-02-04 20:00] VITALS: BP 132/70
[2022-02-04 20:53] LABS: HEMATOCRIT 22.6 % (36.0-48.0); HEMOGLOBIN 7.4 g/dL (12.0-16.0)
[2022-02-05] VITALS: BP 129/72
[2022-02-05 04:00] VITALS: BP 140/73
[2022-02-05] MEDS: BLOOD SUGAR DIAGNOSTIC STRIP TEST SCH ×4 (06:20→21:36)
[2022-02-05] MEDS: INSULIN LISPRO 100 UNITS/ML SUBCUT SCH ×4 (06:20→21:38)
[2022-02-05 07:39] LABS: CHLORIDE 114 mEq/L (98-107)
[2022-02-05 07:44] LABS: HEMOGLOBIN. 7.9 g/dL (12.0-16.0); MEAN CORPUSCULAR HEMOGLOBIN 25.1 pg (28.0-32.0); MEAN CORPUSCULAR VOLUME 76.1 fL (81.0-99.0); RED BLOOD CELL COUNT 3.16 mill/uL (4.2-5.4); RED CELL DISTRIBUTION WIDTH 16.5 % (11.6-14.6); TOTAL IRON BINDING CAPACITY 165 ug/dL (250-450)
[2022-02-05 08:00] VITALS: BP 130/71
[2022-02-05] MEDS: ENOXAPARIN 30MG/0.3ML SYR SUBCUT SCH ×2 (09:13→21:36)
[2022-02-05] MEDS: ATORVASTATIN CALCIUM 20MG TABLET PO SCH (09:14)
[2022-02-05] MEDS: GABAPENTIN 300MG CAPSULE PO SCH ×3 (09:14→17:47)
[2022-02-05] MEDS: CARVEDILOL 3.125 MG TABLET PO SCH ×2 (09:14→21:36)
[2022-02-05] MEDS: AMLODIPINE 10MG TABLET PO SCH (09:14)
[2022-02-05] MEDS: DULOXETINE HCL 30MG DR CAPSULE PO SCH (09:14)
[2022-02-05 12:00] VITALS: BP 142/66
[2022-02-05 16:00] VITALS: BP 136/68
[2022-02-05 20:46] VITALS: BP 140/65
[2022-02-06 00:36] VITALS: BP 149/77
[2022-02-06 04:00] VITALS: BP 123/69
[2022-02-06] MEDS: BLOOD SUGAR DIAGNOSTIC STRIP TEST SCH ×4 (06:27→21:00)
[2022-02-06] MEDS: INSULIN LISPRO 100 UNITS/ML SUBCUT SCH ×4 (06:28→21:00)
[2022-02-06 08:00] VITALS: BP 134/69
[2022-02-06] MEDS: ENOXAPARIN 30MG/0.3ML SYR SUBCUT SCH ×2 (09:26→22:50)
[2022-02-06] MEDS: AMLODIPINE 10MG TABLET PO SCH (09:27)
[2022-02-06] MEDS: GABAPENTIN 300MG CAPSULE PO SCH ×3 (09:28→17:27)
[2022-02-06] MEDS: ATORVASTATIN CALCIUM 20MG TABLET PO SCH (09:28)
[2022-02-06] MEDS: DULOXETINE HCL 30MG DR CAPSULE PO SCH (09:28)
[2022-02-06] MEDS: CARVEDILOL 3.125 MG TABLET PO SCH ×2 (09:28→22:51)
[2022-02-06] MEDS ORDERED: LORAZEPAM 2MG/ML CPJ IM PRN (09:30)
[2022-02-06] MEDS: HYDROCODONE/ACETAMINOPHEN 10/325MG TABLET PO PRN ×2 (10:53→17:28)
[2022-02-06 12:00] VITALS: BP 149/69
[2022-02-06] MEDS: DOCUSATE SODIUM 250MG CAPSULE PO SCH (12:44)
[2022-02-06 16:00] VITALS: BP 128/62
[2022-02-06 20:00] VITALS: BP 126/63
[2022-02-07] VITALS: BP 126/75
[2022-02-07] MEDS: PHENYLEPH/PRAMOXIN/GLYCR/PET RECTAL CREAM 26GM PR SCH ×4 (01:01→18:00)
[2022-02-07] MEDS: HYDROCODONE/ACETAMINOPHEN 10/325MG TABLET PO PRN ×2 (01:15→09:06)
[2022-02-07 04:00] VITALS: BP 126/75
[2022-02-07] MEDS: INSULIN LISPRO 100 UNITS/ML SUBCUT SCH ×4 (06:24→21:00)
[2022-02-07] MEDS: BLOOD SUGAR DIAGNOSTIC STRIP TEST SCH ×4 (06:24→21:57)
[2022-02-07 08:00] VITALS: BP 144/66
[2022-02-07] MEDS: GABAPENTIN 300MG CAPSULE PO SCH ×3 (09:05→17:56)
[2022-02-07] MEDS: AMLODIPINE 10MG TABLET PO SCH (09:05)
[2022-02-07] MEDS: DULOXETINE HCL 30MG DR CAPSULE PO SCH (09:06)
[2022-02-07] MEDS: DOCUSATE SODIUM 250MG CAPSULE PO SCH (09:06)
[2022-02-07] MEDS: CARVEDILOL 3.125 MG TABLET PO SCH ×2 (09:06→21:38)
[2022-02-07] MEDS: ENOXAPARIN 30MG/0.3ML SYR SUBCUT SCH ×2 (09:07→21:39)
[2022-02-07] MEDS: ATORVASTATIN CALCIUM 20MG TABLET PO SCH (09:13)
[2022-02-07 12:00] VITALS: BP 138/70
[2022-02-07 16:00] VITALS: BP 100/61
[2022-02-07 20:00] VITALS: BP 137/76
[2022-02-08] VITALS: BP 112/54
[2022-02-08] MEDS: PHENYLEPH/PRAMOXIN/GLYCR/PET RECTAL CREAM 26GM PR SCH ×4 (02:33→18:15)
[2022-02-08 04:00] VITALS: BP 127/62
[2022-02-08] MEDS: INSULIN LISPRO 100 UNITS/ML SUBCUT SCH ×4 (06:39→21:46)
[2022-02-08] MEDS: BLOOD SUGAR DIAGNOSTIC STRIP TEST SCH ×5 (06:39→20:44)
[2022-02-08 08:00] VITALS: BP 101/65
[2022-02-08] MEDS: AMLODIPINE 10MG TABLET PO SCH (08:29)
[2022-02-08] MEDS: DOCUSATE SODIUM 250MG CAPSULE PO SCH (08:31)
[2022-02-08] MEDS: DULOXETINE HCL 30MG DR CAPSULE PO SCH (08:38)
[2022-02-08] MEDS: ATORVASTATIN CALCIUM 20MG TABLET PO SCH (08:38)
[2022-02-08] MEDS: GABAPENTIN 300MG CAPSULE PO SCH ×3 (08:38→18:13)
[2022-02-08] MEDS: ENOXAPARIN 30MG/0.3ML SYR SUBCUT SCH ×2 (08:39→21:47)
[2022-02-08] MEDS: CARVEDILOL 3.125 MG TABLET PO SCH ×2 (09:00→21:47)
[2022-02-08 16:00] VITALS: BP 126/61
[2022-02-08 20:00] VITALS: BP 117/59
[2022-02-09] VITALS: BP 109/56
[2022-02-09] MEDS: PHENYLEPH/PRAMOXIN/GLYCR/PET RECTAL CREAM 26GM PR SCH ×5 (00:07→23:26)
[2022-02-09 04:00] VITALS: BP 119/73
[2022-02-09] MEDS: BLOOD SUGAR DIAGNOSTIC STRIP TEST SCH ×4 (05:59→21:06)
[2022-02-09 07:06] LABS: BASOPHILS % 0.4 % (0.0-2.0); EOSINOPHILS % 2.8 % (0.0-5.0); HEMATOCRIT. 25.9 % (36.0-48.0); HEMOGLOBIN. 8.4 g/dL (12.0-16.0); MEAN CORPUSCULAR VOLUME 76.8 fL (81.0-99.0); MEAN PLATELET VOLUME 8.4 fl (7.4-10.4); MONOCYTES % 12.2 % (2.0-8.0); NEUTROPHILS % 56.6 % (40.0-76.0); PLATELET 358 x1000/uL (130-400); RED BLOOD CELL COUNT 3.37 mill/uL (4.2-5.4); RED CELL DISTRIBUTION WIDTH 17.2 % (11.6-14.6)
[2022-02-09 07:37] LABS: CHLORIDE 111 mEq/L (98-107)
[2022-02-09] MEDS: INSULIN LISPRO 100 UNITS/ML SUBCUT SCH ×4 (07:41→21:00)
[2022-02-09 08:00] VITALS: BP 138/74
[2022-02-09] MEDS: ATORVASTATIN CALCIUM 20MG TABLET PO SCH (08:52)
[2022-02-09] MEDS: AMLODIPINE 10MG TABLET PO SCH (08:52)
[2022-02-09] MEDS: CARVEDILOL 3.125 MG TABLET PO SCH ×2 (08:52→21:07)
[2022-02-09] MEDS: DOCUSATE SODIUM 250MG CAPSULE PO SCH (08:52)
[2022-02-09] MEDS: GABAPENTIN 300MG CAPSULE PO SCH ×3 (08:53→18:05)
[2022-02-09] MEDS: ENOXAPARIN 30MG/0.3ML SYR SUBCUT SCH ×2 (09:00→21:06)
[2022-02-09] MEDS: DULOXETINE HCL 30MG DR CAPSULE PO SCH (11:55)
[2022-02-09 12:00] VITALS: BP 123/67
[2022-02-09] MEDS: ACETAMINOPHEN 650MG/20.3ML UDC PO PRN (14:52)
[2022-02-09 16:00] VITALS: BP 112/67
[2022-02-09 20:00] VITALS: BP 132/72
[2022-02-10] VITALS: BP 122/68
[2022-02-10 04:00] VITALS: BP 146/70
[2022-02-10] MEDS: PHENYLEPH/PRAMOXIN/GLYCR/PET RECTAL CREAM 26GM PR SCH ×3 (06:31→17:17)
[2022-02-10] MEDS: BLOOD SUGAR DIAGNOSTIC STRIP TEST SCH ×4 (06:31→20:41)
[2022-02-10] MEDS: INSULIN LISPRO 100 UNITS/ML SUBCUT SCH ×4 (07:50→20:51)
[2022-02-10 08:00] VITALS: BP 140/81
[2022-02-10] MEDS: CARVEDILOL 3.125 MG TABLET PO SCH ×2 (11:00→20:41)
[2022-02-10] MEDS: ENOXAPARIN 30MG/0.3ML SYR SUBCUT SCH ×2 (11:00→20:41)
[2022-02-10] MEDS: AMLODIPINE 10MG TABLET PO SCH (11:00)
[2022-02-10] MEDS: DULOXETINE HCL 30MG DR CAPSULE PO SCH (11:00)
[2022-02-10] MEDS: DOCUSATE SODIUM 250MG CAPSULE PO SCH (11:00)
[2022-02-10] MEDS: GABAPENTIN 300MG CAPSULE PO SCH ×3 (11:00→17:49)
[2022-02-10] MEDS: ATORVASTATIN CALCIUM 20MG TABLET PO SCH (11:01)
[2022-02-10 12:00] VITALS: BP 135/80
[2022-02-10 16:00] VITALS: BP_SYST 120; BP_SYST 140; BP_DIAS 61; BP_DIAS 87
[2022-02-10 19:32] VITALS: BP 152/80
[2022-02-10] MEDS: ACETAMINOPHEN 650MG/20.3ML UDC PO PRN (20:42)
[2022-02-11] VITALS: BP 115/65
[2022-02-11] MEDS: PHENYLEPH/PRAMOXIN/GLYCR/PET RECTAL CREAM 26GM PR SCH ×4 (00:38→18:31)
[2022-02-11 04:00] VITALS: BP 131/76
[2022-02-11] MEDS: BLOOD SUGAR DIAGNOSTIC STRIP TEST SCH ×4 (07:06→20:57)
[2022-02-11] MEDS: INSULIN LISPRO 100 UNITS/ML SUBCUT SCH ×4 (07:07→21:01)
[2022-02-11 08:00] VITALS: BP 134/82
[2022-02-11] MEDS: DULOXETINE HCL 30MG DR CAPSULE PO SCH (10:57)
[2022-02-11] MEDS: AMLODIPINE 10MG TABLET PO SCH (10:57)
[2022-02-11] MEDS: CARVEDILOL 3.125 MG TABLET PO SCH ×2 (10:57→20:57)
[2022-02-11] MEDS: GABAPENTIN 300MG CAPSULE PO SCH ×3 (10:57→19:15)
[2022-02-11] MEDS: DOCUSATE SODIUM 250MG CAPSULE PO SCH (10:57)
[2022-02-11] MEDS: ATORVASTATIN CALCIUM 20MG TABLET PO SCH (10:57)
[2022-02-11] MEDS: ENOXAPARIN 30MG/0.3ML SYR SUBCUT SCH ×2 (10:58→20:57)
[2022-02-11 12:00] VITALS: BP 121/69
[2022-02-11 16:00] VITALS: BP 133/70
[2022-02-11] MEDS: ACETAMINOPHEN 650MG/20.3ML UDC PO PRN ×2 (16:57→21:04)
[2022-02-11 20:00] VITALS: BP 115/68
[2022-02-12] VITALS: BP 122/69
[2022-02-12] MEDS: PHENYLEPH/PRAMOXIN/GLYCR/PET RECTAL CREAM 26GM PR SCH ×5 (00:06→23:25)
[2022-02-12] MEDS: ACETAMINOPHEN 650MG/20.3ML UDC PO PRN (05:28)
[2022-02-12 06:10] VITALS: BP 132/92
[2022-02-12] MEDS: HYDROCODONE/ACETAMINOPHEN 10/325MG TABLET PO PRN ×2 (06:22→17:38)
[2022-02-12] MEDS: BLOOD SUGAR DIAGNOSTIC STRIP TEST SCH ×4 (06:25→20:52)
[2022-02-12] MEDS: INSULIN LISPRO 100 UNITS/ML SUBCUT SCH ×4 (07:50→21:02)
[2022-02-12 08:00] VITALS: BP 119/63
[2022-02-12] MEDS: ATORVASTATIN CALCIUM 20MG TABLET PO SCH (09:00)
[2022-02-12] MEDS: ENOXAPARIN 30MG/0.3ML SYR SUBCUT SCH ×2 (09:00→20:52)
[2022-02-12] MEDS: GABAPENTIN 300MG CAPSULE PO SCH ×3 (09:00→17:38)
[2022-02-12] MEDS: DOCUSATE SODIUM 250MG CAPSULE PO SCH (09:00)
[2022-02-12] MEDS: CARVEDILOL 3.125 MG TABLET PO SCH ×2 (09:00→20:52)
[2022-02-12] MEDS: DULOXETINE HCL 30MG DR CAPSULE PO SCH (09:00)
[2022-02-12] MEDS: AMLODIPINE 10MG TABLET PO SCH (09:01)
[2022-02-12 12:00] VITALS: BP 118/49
[2022-02-12 16:00] VITALS: BP 103/63
[2022-02-12 20:00] VITALS: BP 126/74
[2022-02-13] VITALS (7 sets, daily range): BP systolic 118–153; BP diastolic 43–87
[2022-02-13] MEDS: PHENYLEPH/PRAMOXIN/GLYCR/PET RECTAL CREAM 26GM PR SCH ×3 (05:36→18:00)
[2022-02-13] MEDS: BLOOD SUGAR DIAGNOSTIC STRIP TEST SCH ×4 (06:58→20:39)
[2022-02-13] MEDS: INSULIN LISPRO 100 UNITS/ML SUBCUT SCH ×4 (08:43→20:46)
[2022-02-13] MEDS: DULOXETINE HCL 30MG DR CAPSULE PO SCH (08:45)
[2022-02-13] MEDS: DOCUSATE SODIUM 250MG CAPSULE PO SCH (08:45)
[2022-02-13] MEDS: ATORVASTATIN CALCIUM 20MG TABLET PO SCH (08:45)
[2022-02-13] MEDS: CARVEDILOL 3.125 MG TABLET PO SCH ×2 (08:45→20:39)
[2022-02-13] MEDS: GABAPENTIN 300MG CAPSULE PO SCH ×3 (08:45→19:08)
[2022-02-13] MEDS: ENOXAPARIN 30MG/0.3ML SYR SUBCUT SCH (08:45)
[2022-02-13] MEDS: AMLODIPINE 10MG TABLET PO SCH (08:45)
[2022-02-13 12:46] LABS: BASOPHILS % 0.3 % (0.0-2.0); EOSINOPHILS % 3.9 % (0.0-5.0); HEMATOCRIT. 26.3 % (36.0-48.0); HEMOGLOBIN. 8.3 g/dL (12.0-16.0); MEAN CORPUSCULAR HEMOGLOBIN 24.6 pg (28.0-32.0); MEAN PLATELET VOLUME 9.1 fl (7.4-10.4); MONOCYTES % 9.8 % (2.0-8.0); PLATELET 318 x1000/uL (130-400); RED BLOOD CELL COUNT 3.37 mill/uL (4.2-5.4); RED CELL DISTRIBUTION WIDTH 17.5 % (11.6-14.6)
[2022-02-13 12:57] LABS: CHLORIDE 109 mEq/L (98-107)
[2022-02-14] VITALS: BP 138/73
[2022-02-14] MEDS: HYDROCODONE/ACETAMINOPHEN 10/325MG TABLET PO PRN ×2 (00:44→09:34)
[2022-02-14] MEDS: PHENYLEPH/PRAMOXIN/GLYCR/PET RECTAL CREAM 26GM PR SCH ×4 (00:45→18:00)
[2022-02-14 04:00] VITALS: BP 146/71
[2022-02-14] MEDS: BLOOD SUGAR DIAGNOSTIC STRIP TEST SCH ×4 (07:19→21:00)
[2022-02-14] MEDS: INSULIN LISPRO 100 UNITS/ML SUBCUT SCH ×4 (07:50→21:00)
[2022-02-14 08:00] VITALS: BP 101/68
[2022-02-14] MEDS: DULOXETINE HCL 30MG DR CAPSULE PO SCH (09:24)
[2022-02-14] MEDS: GABAPENTIN 300MG CAPSULE PO SCH ×3 (09:24→18:01)
[2022-02-14] MEDS: AMLODIPINE 10MG TABLET PO SCH (09:24)
[2022-02-14] MEDS: CARVEDILOL 3.125 MG TABLET PO SCH ×2 (09:24→21:00)
[2022-02-14] MEDS: DOCUSATE SODIUM 250MG CAPSULE PO SCH (09:34)
[2022-02-14] MEDS: ATORVASTATIN CALCIUM 20MG TABLET PO SCH (09:38)
[2022-02-14 12:00] VITALS: BP 122/64
[2022-02-14 16:00] VITALS: BP 140/90
[2022-02-14 20:00] VITALS: BP 136/73
[2022-02-14] MEDS: ENOXAPARIN 30MG/0.3ML SYR SUBCUT SCH (21:00)
[2022-02-15] VITALS: BP 134/70
[2022-02-15] MEDS: HYDROCODONE/ACETAMINOPHEN 10/325MG TABLET PO PRN ×3 (01:45→14:50)
[2022-02-15 04:00] VITALS: BP 137/75
[2022-02-15] MEDS: PHENYLEPH/PRAMOXIN/GLYCR/PET RECTAL CREAM 26GM PR SCH ×4 (06:00→18:19)
[2022-02-15] MEDS: BLOOD SUGAR DIAGNOSTIC STRIP TEST SCH ×4 (06:33→21:00)
[2022-02-15] MEDS: INSULIN LISPRO 100 UNITS/ML SUBCUT SCH ×4 (06:34→21:00)
[2022-02-15 08:00] VITALS: BP 131/75
[2022-02-15] MEDS: GABAPENTIN 300MG CAPSULE PO SCH ×3 (09:07→18:15)
[2022-02-15] MEDS: AMLODIPINE 10MG TABLET PO SCH (09:07)
[2022-02-15] MEDS: ATORVASTATIN CALCIUM 20MG TABLET PO SCH (09:08)
[2022-02-15] MEDS: DOCUSATE SODIUM 250MG CAPSULE PO SCH (09:08)
[2022-02-15] MEDS: CARVEDILOL 3.125 MG TABLET PO SCH ×2 (09:08→22:07)
[2022-02-15] MEDS: DULOXETINE HCL 30MG DR CAPSULE PO SCH (09:08)
[2022-02-15] MEDS: ENOXAPARIN 30MG/0.3ML SYR SUBCUT SCH ×2 (09:09→22:08)
[2022-02-15 12:00] VITALS: BP 117/68
[2022-02-15 16:00] VITALS: BP 101/50
[2022-02-15 20:00] VITALS: BP 123/68
[2022-02-16] VITALS: BP 93/66
[2022-02-16 04:00] VITALS: BP 101/63
[2022-02-16] MEDS: HYDROCODONE/ACETAMINOPHEN 10/325MG TABLET PO PRN (05:51)
[2022-02-16] MEDS: PHENYLEPH/PRAMOXIN/GLYCR/PET RECTAL CREAM 26GM PR SCH ×4 (06:00→17:58)
[2022-02-16 07:05] LABS: BASOPHILS % 0.2 % (0.0-2.0); EOSINOPHILS % 4.6 % (0.0-5.0); HEMATOCRIT. 26.3 % (36.0-48.0); HEMOGLOBIN. 8.4 g/dL (12.0-16.0); LYMPHOCYTES % 41.3 % (20.0-50.0); MEAN CORPUSCULAR HEMOGLOBIN 25.1 pg (28.0-32.0); MEAN CORPUSCULAR VOLUME 78.5 fL (81.0-99.0); MEAN PLATELET VOLUME 9.1 fl (7.4-10.4); MONOCYTES % 10.9 % (2.0-8.0); PLATELET 298 x1000/uL (130-400); RED BLOOD CELL COUNT 3.34 mill/uL (4.2-5.4); RED CELL DISTRIBUTION WIDTH 18.1 % (11.6-14.6)
[2022-02-16 07:12] LABS: CHLORIDE 105 mEq/L (98-107)
[2022-02-16] MEDS: BLOOD SUGAR DIAGNOSTIC STRIP TEST SCH ×3 (07:20→17:57)
[2022-02-16 08:00] VITALS: BP 129/56
[2022-02-16] MEDS: ATORVASTATIN CALCIUM 20MG TABLET PO SCH (08:32)
[2022-02-16] MEDS: DULOXETINE HCL 30MG DR CAPSULE PO SCH (08:32)
[2022-02-16] MEDS: DOCUSATE SODIUM 250MG CAPSULE PO SCH (08:32)
[2022-02-16] MEDS: CARVEDILOL 3.125 MG TABLET PO SCH (08:33)
[2022-02-16] MEDS: GABAPENTIN 300MG CAPSULE PO SCH ×3 (08:34→17:57)
[2022-02-16] MEDS: AMLODIPINE 10MG TABLET PO SCH (08:34)
[2022-02-16] MEDS: ENOXAPARIN 30MG/0.3ML SYR SUBCUT SCH (08:35)
[2022-02-16] MEDS: INSULIN LISPRO 100 UNITS/ML SUBCUT SCH ×3 (08:37→18:05)
[2022-02-16 12:00] VITALS: BP 109/62
[2022-02-16 14:49] VITALS: BP 129/56
[2022-02-16 16:00] VITALS: BP 142/75
[2022-02-16] MEDS ORDERED: DOCU250C14 MT (19:11)
[2022-02-16] MEDS ORDERED: GABA-532 MT (19:11)
[2022-02-16] MEDS ORDERED: AMLO10TA80 MT (19:11)
[2022-02-16] MEDS ORDERED: METF-416 MT (19:11)
[2022-02-16] MEDS ORDERED: ATOR20TA MT (19:11)
[2022-02-16] MEDS ORDERED: GLIP5TAB12 MT (19:11)
== END 2022-02-16 20:38 | disposition home health service (06) | DRG 305 ==
LOC: 5WST 17:42 → 6WST 02-08 12:01 → 6EST 02-13 16:42
PROVIDERS: ADMIT Internal Medicine; ATTEND Internal Medicine
PROC: 0Y6H0Z3 Detachment at Right Lower Leg, Low, Open Approach (ICD-10-PCS; principal; 2022-01-29)
PROC: 02HV33Z Insertion of Infusion Device into Superior Vena Cava, Percutaneous Approach (ICD-10-PCS; 2022-01-31)
PROC: B548ZZA Ultrasonography of Superior Vena Cava, Guidance (ICD-10-PCS; 2022-01-31)
PROC: 0JB70ZZ Excision of Back Subcutaneous Tissue and Fascia, Open Approach (ICD-10-PCS; 2022-02-01)
PROC: 0JB70ZZ Excision of Back Subcutaneous Tissue and Fascia, Open Approach (ICD-10-PCS; 2022-02-09)
DX: T87.89 Other complications of amputation stump (principal); L89.153 Pressure ulcer of sacral region, stage 3; E43 Unspecified severe protein-calorie malnutrition; E11.52 Type 2 diabetes mellitus with diabetic peripheral angiopathy with gangrene; D64.9 Anemia, unspecified; D50.9 Iron deficiency anemia, unspecified; I70.261 Atherosclerosis of native arteries of extremities with gangrene, right leg; S90.32XA Contusion of left foot, initial encounter; E87.8 Other disorders of electrolyte and fluid balance, not elsewhere classified; F03.90 Unspecified dementia, unspecified severity, without behavioral disturbance, psychotic disturbance, mood disturbance, and anxiety; Z20.822 Contact with and (suspected) exposure to COVID-19; E66.9 Obesity, unspecified; Y83.8 Other surgical procedures as the cause of abnormal reaction of the patient, or of later complication, without mention of misadventure at the time of the procedure; E78.5 Hyperlipidemia, unspecified; I10 Essential (primary) hypertension; K80.20 Calculus of gallbladder without cholecystitis without obstruction; Z79.899 Other long term (current) drug therapy; Z79.4 Long term (current) use of insulin; Z68.33 Body mass index [BMI] 33.0-33.9, adult; Z89.611 Acquired absence of right leg above knee; Y92.89 Other specified places as the place of occurrence of the external cause; I70.202 Unspecified atherosclerosis of native arteries of extremities, left leg
CPT/HCPCS: 36415; 71045; 75635; 76937; 80048; 80061; 80202; 81003; 82040; 82607; 82728; 82746; 82962; 83036; 83540; 83550; 84134; 85014; 85018; 85025; 85044; 86850; 86900; 87426; 88307; 88311; 92610; 97162; 97166; 97530; A6261; C1725; J0690; J1100; J1170; J1650; J1815; J2250; J2270; J2405; J2543; J2704; J2795; J3010; J3370; J3490; J7040; J7060; Q9967

== ENCOUNTER 2022-03-05 00:51 | Inpatient (IN) | payer OTHER ==
[~2022-03-05] VITALS: Ht 165.1 cm; Wt 76.2 kg
[~2022-03-05 00:51] MED LIST changes: -ACET-3161 PO; +AMLO10TA80 MT; -ASPI-1079 PO; +ATOR20TA MT; +CARV3.1242 MT; +CLON-457 MT; +DOCU250C14 MT; +DOCU250C69 PO; +DULO30CA2 MT; +ENOX40DI8 SQ; +GABA-532 MT; -GABAPENTIN PO; +GLIP5TAB12 MT; +HYDR-4009 MT; -INSU100I24 SQ; +INSU100V37 SQ; +LISI10TA26 PO; -LISINOPRIL PO; +METF-416 MT; +METH-773 MT; +ONDA4TAB50 MT; -SIMV-43 PO
[2022-03-05] MEDS ORDERED: ONDANSETRON HCL 4MG/2ML INJ IV STA (01:22)
[2022-03-05] MEDS ORDERED: MORPHINE SULFATE 4 MG/ML CPJ (NOT FOR IM USE) IV STA (01:22)
[2022-03-05 01:54] LABS: BASOPHILS % 0.6 % (0.0-2.0); EOSINOPHILS % 2.9 % (0.0-5.0); HEMATOCRIT. 27.2 % (36.0-48.0); HEMOGLOBIN. 8.4 g/dL (12.0-16.0); LYMPHOCYTES % 28.7 % (20.0-50.0); MEAN CORPUSCULAR VOLUME 81.4 fL (81.0-99.0); MEAN PLATELET VOLUME 8.6 fl (7.4-10.4); MONOCYTES % 9.7 % (2.0-8.0); NEUTROPHILS % 58.1 % (40.0-76.0); PLATELET 436 x1000/uL (130-400); RED BLOOD CELL COUNT 3.34 mill/uL (4.2-5.4); RED CELL DISTRIBUTION WIDTH 19.4 % (11.6-14.6)
[2022-03-05 01:56] LABS: CHLORIDE 115 mEq/L (98-107)
[2022-03-05] MEDS ORDERED: DEXTROSE 50% WATER 50ML SYRINGE IV ONE (02:30)
[2022-03-05] MEDS ORDERED: VANCOMYCIN 1G PREMIX 200 ML IV ONE (02:30)
[2022-03-05] MEDS ORDERED: PIPERACILLIN/TAZ 3.375G PREMIX 50 ML IV ONE (02:30)
[2022-03-05] MEDS ORDERED: DEXT 10% WATER 1,000 ML IV ONE (03:15)
[2022-03-05] MEDS ORDERED: ONDANSETRON HCL 4MG/2ML INJ IV SCH (03:30)
[2022-03-05] MEDS ORDERED: MORPHINE SULFATE 4 MG/ML CPJ (NOT FOR IM USE) IV SCH (03:30)
[2022-03-05] MEDS ORDERED: VANCOMYCIN 1GM PMX (XELLIA) 200 ML IV SCH (04:00)
[2022-03-05 09:00] VITALS: BP 144/72
[2022-03-05] MEDS ORDERED: DEXT 5%/0.45% NACL 1000ML 1,000 ML IV SCH (09:30)
[2022-03-05] MEDS ORDERED: ONDANSETRON HCL 4MG/2ML INJ IV PRN (09:30)
[2022-03-05] MEDS ORDERED: ACETAMINOPHEN 325MG TABLET PO PRN (09:30)
[2022-03-05 09:54] VITALS: BP 144/72
[2022-03-05] MEDS: HYDROCODONE/ACETAMINOPHEN 5/325MG TABLET PO PRN ×2 (11:17→16:15)
[2022-03-05] MEDS: BLOOD SUGAR DIAGNOSTIC STRIP TEST SCH ×3 (11:53→21:58)
[2022-03-05 12:30] VITALS: BP 128/59
[2022-03-05] MEDS: GABAPENTIN 300MG CAPSULE PO SCH ×2 (14:08→22:12)
[2022-03-05] MEDS ORDERED: DEXTROSE 10% WATER 500 ML IV ONE (14:45)
[2022-03-05 16:30] VITALS: BP 144/78
[2022-03-05] MEDS ORDERED: DEXTROSE 50% WATER 50ML SYRINGE IV PRN (18:00)
[2022-03-05 19:42] LABS: CLARITY URINE CLOUDY (CLEAR); COLOR URINE YELLOW (YELLOW); KETONES URINE NEGATIVE (NEGATIVE); LEUKOCYTE ESTERASE URINE 2+ (NEGATIVE); NITRITE URINE NEGATIVE (NEGATIVE); OCCULT BLOOD URINE 1+ (NEGATIVE); PROTEIN URINE 1+ (NEGATIVE); SPECIFIC GRAVITY URINE 1.017 (1.005-1.030); UROBILINOGEN URINE 0.2 E.U./dL (0.2-1.0)
[2022-03-05 20:00] VITALS: BP 119/64
[2022-03-05] MEDS ORDERED: NALOXONE HCL 0.4MG/ML VIAL IV PRN (23:30)
[2022-03-06] VITALS: BP 108/69
[2022-03-06] MEDS: HYDROCODONE/ACETAMINOPHEN 5/325MG TABLET PO PRN ×2 (00:22→22:34)
[2022-03-06 04:00] VITALS: BP 120/64
[2022-03-06] MEDS: GABAPENTIN 300MG CAPSULE PO SCH ×3 (06:00→21:06)
[2022-03-06] MEDS: BLOOD SUGAR DIAGNOSTIC STRIP TEST SCH ×4 (06:49→21:14)
[2022-03-06 08:03] VITALS: BP 144/68
[2022-03-06 12:00] VITALS: BP 109/72
[2022-03-06] MEDS ORDERED: MIDAZOLAM HCL 5 MG/5 ML VIAL ONE (12:58)
[2022-03-06] MEDS ORDERED: FENTANYL CITRATE/PF 50MCG/ML 2ML VIAL ONE (12:58)
[2022-03-06] MEDS ORDERED: IOHEXOL-300 100 ML BOTTLE ONE (13:09)
[2022-03-06] MEDS ORDERED: IODIXANOL 320MG/ML 100 ML BOTTLE IV ONE (13:10)
[2022-03-06] MEDS ORDERED: LIDOCAINE HCL 1% 20ML VIAL (Pyxis) INJ ONE (13:11)
[2022-03-06] MEDS ORDERED: CEFAZOLIN SODIUM 1000MG/VIAL ONE (13:14)
[2022-03-06] MEDS ORDERED: CEFAZOLIN 1000MG PREMIX 50 ML IV ONE (13:15)
[2022-03-06 16:00] VITALS: BP 143/84
[2022-03-06 20:00] VITALS: BP 123/63
[2022-03-07] VITALS: BP 108/79
[2022-03-07 04:00] VITALS: BP 108/57
[2022-03-07] MEDS: GABAPENTIN 300MG CAPSULE PO SCH ×3 (07:00→20:37)
[2022-03-07] MEDS: BLOOD SUGAR DIAGNOSTIC STRIP TEST SCH ×4 (07:05→20:57)
[2022-03-07 08:00] VITALS: BP 129/68
[2022-03-07 12:00] VITALS: BP 136/69
[2022-03-07] MEDS: HYDROCODONE/ACETAMINOPHEN 5/325MG TABLET PO PRN ×2 (13:21→20:37)
[2022-03-07 16:00] VITALS: BP 116/71
[2022-03-07 20:00] VITALS: BP 133/81
[2022-03-08 04:00] VITALS: BP 129/69
[2022-03-08] MEDS: BLOOD SUGAR DIAGNOSTIC STRIP TEST SCH ×3 (06:54→20:27)
[2022-03-08] MEDS: GABAPENTIN 300MG CAPSULE PO SCH ×3 (06:54→21:28)
[2022-03-08 08:00] VITALS: BP 135/75
[2022-03-08] MEDS: HYDROCODONE/ACETAMINOPHEN 5/325MG TABLET PO PRN (10:52)
[2022-03-08 12:00] VITALS: BP 120/57
[2022-03-08 16:00] VITALS: BP 115/64
[2022-03-08 17:46] VITALS: BP 115/64
[2022-03-08 20:00] VITALS: BP 119/73
== END 2022-03-08 22:05 | disposition home health service (06) | DRG 197 ==
LOC: ER 01:00 → MICUSO 03:09 → 7WST 09:21
PROVIDERS: ADMIT Internal Medicine; ATTEND Internal Medicine
PROC: B41G1ZZ Fluoroscopy of Left Lower Extremity Arteries using Low Osmolar Contrast (ICD-10-PCS; principal; 2022-03-06)
DX: I70.262 Atherosclerosis of native arteries of extremities with gangrene, left leg (principal); N17.0 Acute kidney failure with tubular necrosis; E43 Unspecified severe protein-calorie malnutrition; E11.649 Type 2 diabetes mellitus with hypoglycemia without coma; E11.52 Type 2 diabetes mellitus with diabetic peripheral angiopathy with gangrene; D64.9 Anemia, unspecified; E11.42 Type 2 diabetes mellitus with diabetic polyneuropathy; E11.621 Type 2 diabetes mellitus with foot ulcer; L97.529 Non-pressure chronic ulcer of other part of left foot with unspecified severity; E66.9 Obesity, unspecified; E87.8 Other disorders of electrolyte and fluid balance, not elsewhere classified; I10 Essential (primary) hypertension; M17.12 Unilateral primary osteoarthritis, left knee; Z89.611 Acquired absence of right leg above knee; Z83.3 Family history of diabetes mellitus; Z82.49 Family history of ischemic heart disease and other diseases of the circulatory system; Z68.28 Body mass index [BMI] 28.0-28.9, adult
CPT/HCPCS: 36245; 36415; 73560; 75710; 80053; 81003; 82962; 83605; 85025; 87426; 93005; 99291; C1769; C1887; C1893; J0690; J1644; J2250; J2270; J2405; J2543; J3010; J3370; J3490; Q9967

== ENCOUNTER 2022-04-03 13:02 | Inpatient (IN) | payer OTHER ==
[~2022-04-03] VITALS: Ht 168.9 cm; Wt 71.7 kg
[~2022-04-03 13:02] MED LIST changes: -GLIP5TAB12 MT
[2022-04-03 14:34] LABS: BASOPHILS % 0.2 % (0.0-2.0); EOSINOPHILS % 2.7 % (0.0-5.0); HEMATOCRIT. 29.4 % (36.0-48.0); HEMOGLOBIN. 9.4 g/dL (12.0-16.0); LYMPHOCYTES % 22.9 % (20.0-50.0); MEAN CORPUSCULAR HEMOGLOBIN 26.1 pg (28.0-32.0); MEAN CORPUSCULAR VOLUME 81.4 fL (81.0-99.0); MEAN PLATELET VOLUME 8.2 fl (7.4-10.4); MONOCYTES % 8.7 % (2.0-8.0); NEUTROPHILS % 65.5 % (40.0-76.0); PLATELET 475 x1000/uL (130-400); RED BLOOD CELL COUNT 3.61 mill/uL (4.2-5.4); RED CELL DISTRIBUTION WIDTH 18.9 % (11.6-14.6)
[2022-04-03 14:42] LABS: CHLORIDE 114 mEq/L (98-107)
[2022-04-03] MEDS ORDERED: MORPHINE SULFATE 4 MG/ML CPJ (NOT FOR IM USE) IV STA (16:53)
[2022-04-03] MEDS ORDERED: ONDANSETRON HCL 4MG/2ML INJ IV STA (16:53)
[2022-04-03] MEDS ORDERED: SODIUM CHLORIDE 0.9% 1,000 ML IV ONE (17:00)
[2022-04-03] MEDS ORDERED: PIPERACILLIN/TAZ 3.375G PREMIX 50 ML IV ONE (17:00)
[2022-04-03] MEDS ORDERED: VANCOMYCIN 1G PREMIX 200 ML IV ONE (17:00)
[2022-04-03] MEDS ORDERED: SODIUM CHLORIDE 0.9% 1000ML BAG (SEPSIS BOLUS) IV NR (17:30)
[2022-04-03 21:28] LABS: CLARITY URINE CLEAR (CLEAR); COLOR URINE YELLOW (YELLOW); KETONES URINE NEGATIVE (NEGATIVE); LEUKOCYTE ESTERASE URINE 1+ (NEGATIVE); NITRITE URINE NEGATIVE (NEGATIVE); OCCULT BLOOD URINE TRACE (NEGATIVE); PROTEIN URINE TRACE (NEGATIVE); SPECIFIC GRAVITY URINE 1.015 (1.005-1.030); UROBILINOGEN URINE 0.2 E.U./dL (0.2-1.0)
[2022-04-03] MEDS: CLONIDINE 0.1MG TABLET PO PRN (22:55)
[2022-04-03] MEDS: MORPHINE SULFATE 2 MG/ML CPJ (NOT FOR IM USE) IV PRN (22:56)
[2022-04-04] VITALS (7 sets, daily range): BP systolic 129–156; BP diastolic 71–90
[2022-04-04] MEDS ORDERED: DEXTROSE 50% WATER 50ML SYRINGE IV PRN (06:00)
[2022-04-04] MEDS: BLOOD SUGAR DIAGNOSTIC STRIP TEST SCH ×4 (06:57→21:00)
[2022-04-04] MEDS ORDERED: PIPERACILLIN/TAZOBACTAM 3.375G in DEXT 5% WATER 50ML IV SCH (07:30)
[2022-04-04] MEDS ORDERED: VANCOMYCIN 750 MG in DEXT 5% WATER 250 ML IV SCH (08:00)
[2022-04-04] MEDS: INSULIN LISPRO 100 UNITS/ML SUBCUT SCH ×4 (08:10→21:00)
[2022-04-04] MEDS: HEPARIN 5000 UNITS/ML VIAL SUBCUT SCH ×2 (08:51→21:50)
[2022-04-04 11:11] LABS: BG BASE EXCESS -3.8 mmol/L (-2.0-2.0); BG CARBOXYHEMOGLOBIN 0.4 % (0.5-1.5); BG DEOXYHEMOGLOBIN 1.7 % (0.0-5.0); BG FRACTION INSPIRED OXYGEN 32; BG HCO3 ACT 20.7 mmol/L (22.0-26.0); BG METHEMOGLOBIN 0.2 % (0.0-1.5); BG OXYGEN SATURATION 98.3 % (92.0-98.5); BG OXYHEMOGLOBIN 97.7 % (94.0-97.0); BG PCO2 34.9 mmHg (35.0-45.0); BG PH 7.391 (7.350-7.450); BG PO2 114.5 mmHg (75.0-100.0); BG SAMPLE SITE RIGHT RADIAL; BG VENT MODE NASAL CANNULA
[2022-04-04] MEDS: DULOXETINE HCL 30MG DR CAPSULE PO SCH (14:30)
[2022-04-04] MEDS: CARVEDILOL 3.125 MG TABLET PO SCH (16:53)
[2022-04-04 17:10] LABS: *AMPHETAMINES SCREEN URINE NEGATIVE (NEGATIVE); *BARBITURATES SCREEN URINE NEGATIVE (NEGATIVE); *BENZODIAZEPINES SCREEN URINE NEGATIVE (NEGATIVE); *COCAINE SCREEN URINE NEGATIVE (NEGATIVE); CANNABINOID URINE SCREEN NEGATIVE (NEGATIVE); METHADONE URINE SCREEN NEGATIVE (NEGATIVE); OPIATES URINE SCREEN PRESUMTIVE POSITIVE (NEGATIVE); PHENCYCLIDINE URINE SCREEN NEGATIVE (NEGATIVE)
[2022-04-04] MEDS: MORPHINE SULFATE 2 MG/ML CPJ (NOT FOR IM USE) IV PRN (21:49)
[2022-04-04] MEDS: ATORVASTATIN CALCIUM 20MG TABLET PO SCH (21:50)
[2022-04-05 04:00] VITALS: BP 143/84
[2022-04-05] MEDS: NITROGLYCERIN OINT 1GM/INCH UDPKT TD SCH ×2 (06:00→17:21)
[2022-04-05] MEDS: BLOOD SUGAR DIAGNOSTIC STRIP TEST SCH ×4 (06:03→21:52)
[2022-04-05 08:00] VITALS: BP 163/85
[2022-04-05] MEDS: INSULIN LISPRO 100 UNITS/ML SUBCUT SCH ×4 (08:10→21:00)
[2022-04-05] MEDS: CLONIDINE 0.1MG TABLET PO PRN ×2 (08:24→08:25)
[2022-04-05] MEDS: CARVEDILOL 3.125 MG TABLET PO SCH ×2 (08:25→16:42)
[2022-04-05] MEDS: DULOXETINE HCL 30MG DR CAPSULE PO SCH (08:25)
[2022-04-05] MEDS: HEPARIN 5000 UNITS/ML VIAL SUBCUT SCH ×2 (08:26→21:49)
[2022-04-05 12:00] VITALS: BP 147/78
[2022-04-05] MEDS: MORPHINE SULFATE 2 MG/ML CPJ (NOT FOR IM USE) IV PRN ×2 (12:01→21:49)
[2022-04-05] MEDS ORDERED: LIDOCAINE HCL/PF 1% 10 MG/ML 5ML VIAL ONE ×2 (12:14→13:56)
[2022-04-05 16:00] VITALS: BP 159/87
[2022-04-05 17:03] LABS: BASOPHILS % 0.5 % (0.0-2.0); EOSINOPHILS % 4.1 % (0.0-5.0); MEAN CORPUSCULAR HEMOGLOBIN 25.8 pg (28.0-32.0); MEAN CORPUSCULAR VOLUME 80.8 fL (81.0-99.0); MEAN PLATELET VOLUME 8.9 fl (7.4-10.4); MONOCYTES % 12.1 % (2.0-8.0); NEUTROPHILS % 46.3 % (40.0-76.0); PLATELET 330 x1000/uL (130-400); RED CELL DISTRIBUTION WIDTH 18.1 % (11.6-14.6)
[2022-04-05 17:21] LABS: CHLORIDE 110 mEq/L (98-107)
[2022-04-05 20:00] VITALS: BP 160/85
[2022-04-05] MEDS: ATORVASTATIN CALCIUM 20MG TABLET PO SCH (21:49)
[2022-04-06] VITALS: BP 166/76
[2022-04-06] MEDS: CLONIDINE 0.1MG TABLET PO PRN (03:31)
[2022-04-06] MEDS: MORPHINE SULFATE 2 MG/ML CPJ (NOT FOR IM USE) IV PRN (03:56)
[2022-04-06 04:00] VITALS: BP 169/113
[2022-04-06] MEDS: NITROGLYCERIN OINT 1GM/INCH UDPKT TD SCH ×2 (06:22→17:54)
[2022-04-06 07:13] LABS: BASOPHILS % 0.2 % (0.0-2.0); EOSINOPHILS % 2.6 % (0.0-5.0); HEMATOCRIT. 24.5 % (36.0-48.0); HEMOGLOBIN. 8.1 g/dL (12.0-16.0); LYMPHOCYTES % 31.9 % (20.0-50.0); MEAN CORPUSCULAR VOLUME 78.9 fL (81.0-99.0); MEAN PLATELET VOLUME 8.3 fl (7.4-10.4); MONOCYTES % 12.1 % (2.0-8.0); NEUTROPHILS % 53.2 % (40.0-76.0); PLATELET 356 x1000/uL (130-400); RED BLOOD CELL COUNT 3.11 mill/uL (4.2-5.4); RED CELL DISTRIBUTION WIDTH 17.6 % (11.6-14.6)
[2022-04-06 07:16] LABS: CHLORIDE 109 mEq/L (98-107)
[2022-04-06] MEDS: BLOOD SUGAR DIAGNOSTIC STRIP TEST SCH ×4 (07:40→21:00)
[2022-04-06 08:00] VITALS: BP 157/99
[2022-04-06] MEDS: INSULIN LISPRO 100 UNITS/ML SUBCUT SCH ×4 (08:10→21:00)
[2022-04-06] MEDS: CARVEDILOL 3.125 MG TABLET PO SCH ×2 (09:36→17:54)
[2022-04-06] MEDS: DULOXETINE HCL 30MG DR CAPSULE PO SCH (09:36)
[2022-04-06] MEDS: HEPARIN 5000 UNITS/ML VIAL SUBCUT SCH ×2 (09:37→22:09)
[2022-04-06 16:00] VITALS: BP 159/92
[2022-04-06 20:00] VITALS: BP 143/78
[2022-04-06] MEDS: ATORVASTATIN CALCIUM 20MG TABLET PO SCH (22:09)
[2022-04-07] VITALS: BP 154/97
[2022-04-07 04:00] VITALS: BP 144/62
[2022-04-07] MEDS: NITROGLYCERIN OINT 1GM/INCH UDPKT TD SCH ×2 (06:27→18:40)
[2022-04-07 06:46] LABS: BASOPHILS % 0.3 % (0.0-2.0); EOSINOPHILS % 3.6 % (0.0-5.0); HEMOGLOBIN. 8.5 g/dL (12.0-16.0); LYMPHOCYTES % 39.1 % (20.0-50.0); MEAN CORPUSCULAR HEMOGLOBIN 26.1 pg (28.0-32.0); MEAN CORPUSCULAR VOLUME 79.9 fL (81.0-99.0); MEAN PLATELET VOLUME 8.1 fl (7.4-10.4); MONOCYTES % 12.1 % (2.0-8.0); NEUTROPHILS % 44.9 % (40.0-76.0); PLATELET 358 x1000/uL (130-400); RED BLOOD CELL COUNT 3.25 mill/uL (4.2-5.4); RED CELL DISTRIBUTION WIDTH 17.7 % (11.6-14.6)
[2022-04-07] MEDS: BLOOD SUGAR DIAGNOSTIC STRIP TEST SCH ×4 (06:48→21:08)
[2022-04-07 07:05] LABS: CHLORIDE 109 mEq/L (98-107)
[2022-04-07 08:00] VITALS: BP 156/77
[2022-04-07] MEDS: INSULIN LISPRO 100 UNITS/ML SUBCUT SCH ×4 (08:10→21:00)
[2022-04-07] MEDS: DULOXETINE HCL 30MG DR CAPSULE PO SCH (10:11)
[2022-04-07] MEDS: CARVEDILOL 3.125 MG TABLET PO SCH ×2 (10:11→17:02)
[2022-04-07] MEDS: HEPARIN 5000 UNITS/ML VIAL SUBCUT SCH ×2 (10:12→21:09)
[2022-04-07 12:55] VITALS: BP 152/72
[2022-04-07 16:30] VITALS: BP 162/99
[2022-04-07] MEDS: MORPHINE SULFATE 2 MG/ML CPJ (NOT FOR IM USE) IV PRN (17:03)
[2022-04-07 20:00] VITALS: BP 149/92
[2022-04-07] MEDS ORDERED: NALOXONE HCL 0.4MG/ML VIAL IV PRN (21:00)
[2022-04-07] MEDS: ATORVASTATIN CALCIUM 20MG TABLET PO SCH (21:08)
[2022-04-08] VITALS (7 sets, daily range): BP systolic 104–167; BP diastolic 62–91
[2022-04-08] MEDS: CLONIDINE 0.1MG TABLET PO PRN (00:50)
[2022-04-08] MEDS: MORPHINE SULFATE 2 MG/ML CPJ (NOT FOR IM USE) IV PRN ×3 (00:50→22:15)
[2022-04-08] MEDS: NITROGLYCERIN OINT 1GM/INCH UDPKT TD SCH ×2 (05:48→17:57)
[2022-04-08 06:14] LABS: CHLORIDE 108 mEq/L (98-107)
[2022-04-08] MEDS: BLOOD SUGAR DIAGNOSTIC STRIP TEST SCH ×4 (06:16→22:12)
[2022-04-08 06:26] LABS: BASOPHILS % 0.4 % (0.0-2.0); EOSINOPHILS % 3.7 % (0.0-5.0); HEMATOCRIT. 25.1 % (36.0-48.0); HEMOGLOBIN. 8.3 g/dL (12.0-16.0); LYMPHOCYTES % 31.6 % (20.0-50.0); MEAN CORPUSCULAR HEMOGLOBIN 26.4 pg (28.0-32.0); MEAN CORPUSCULAR VOLUME 79.9 fL (81.0-99.0); MEAN PLATELET VOLUME 8.7 fl (7.4-10.4); MONOCYTES % 14.2 % (2.0-8.0); NEUTROPHILS % 50.1 % (40.0-76.0); PLATELET 331 x1000/uL (130-400); RED BLOOD CELL COUNT 3.14 mill/uL (4.2-5.4); RED CELL DISTRIBUTION WIDTH 17.8 % (11.6-14.6)
[2022-04-08] MEDS: INSULIN LISPRO 100 UNITS/ML SUBCUT SCH ×4 (07:30→22:12)
[2022-04-08] MEDS: DULOXETINE HCL 30MG DR CAPSULE PO SCH (09:46)
[2022-04-08] MEDS: HEPARIN 5000 UNITS/ML VIAL SUBCUT SCH ×2 (09:46→22:12)
[2022-04-08] MEDS: CARVEDILOL 3.125 MG TABLET PO SCH ×2 (09:46→17:57)
[2022-04-08] MEDS: ATORVASTATIN CALCIUM 20MG TABLET PO SCH (22:17)
[2022-04-08] MEDS ORDERED: NALOXONE HCL 0.4MG/ML VIAL IV PRN (23:15)
[2022-04-09] VITALS: BP 148/95
[2022-04-09 04:00] VITALS: BP 158/88
[2022-04-09] MEDS: NITROGLYCERIN OINT 1GM/INCH UDPKT TD SCH ×2 (05:32→17:15)
[2022-04-09 06:16] LABS: HEMATOCRIT. 26.2 % (36.0-48.0); HEMOGLOBIN. 8.6 g/dL (12.0-16.0); MEAN CORPUSCULAR HEMOGLOBIN 26.2 pg (28.0-32.0); MEAN CORPUSCULAR VOLUME 79.9 fL (81.0-99.0); MEAN PLATELET VOLUME 8.3 fl (7.4-10.4); PLATELET 332 x1000/uL (130-400); RED BLOOD CELL COUNT 3.28 mill/uL (4.2-5.4); RED CELL DISTRIBUTION WIDTH 17.5 % (11.6-14.6)
[2022-04-09] MEDS: BLOOD SUGAR DIAGNOSTIC STRIP TEST SCH ×4 (06:20→21:14)
[2022-04-09 07:47] LABS: CHLORIDE 107 mEq/L (98-107)
[2022-04-09] MEDS: INSULIN LISPRO 100 UNITS/ML SUBCUT SCH ×4 (07:49→21:00)
[2022-04-09 07:53] LABS: HDL CHOLESTEROL 37 mg/dL (40-59); LDL CHOLESTEROL 82 mg/dL (5-100)
[2022-04-09 08:00] VITALS: BP 125/73
[2022-04-09] MEDS: DULOXETINE HCL 30MG DR CAPSULE PO SCH (08:06)
[2022-04-09] MEDS: CARVEDILOL 3.125 MG TABLET PO SCH ×2 (08:08→17:15)
[2022-04-09] MEDS: MORPHINE SULFATE 2 MG/ML CPJ (NOT FOR IM USE) IV PRN ×2 (08:09→22:11)
[2022-04-09] MEDS: HEPARIN 5000 UNITS/ML VIAL SUBCUT SCH ×2 (08:10→21:00)
[2022-04-09 11:32] LABS: PLATELET ESTIMATE NORMAL
[2022-04-09 12:00] VITALS: BP 146/81
[2022-04-09 16:00] VITALS: BP 152/77
[2022-04-09] MEDS ORDERED: LACTULOSE 20G/30ML UDC PO PRN (18:00)
[2022-04-09] MEDS ORDERED: DOCUSATE SODIUM 100MG CAPSULE PO PRN (18:00)
[2022-04-09 20:00] VITALS: BP 143/87
[2022-04-09] MEDS: ATORVASTATIN CALCIUM 20MG TABLET PO SCH (21:21)
[2022-04-10] VITALS: BP 167/82
[2022-04-10] MEDS: CLONIDINE 0.1MG TABLET PO PRN ×2 (00:43→22:08)
[2022-04-10 04:00] VITALS: BP 168/86
[2022-04-10] MEDS: NITROGLYCERIN OINT 1GM/INCH UDPKT TD SCH ×2 (05:54→17:46)
[2022-04-10] MEDS: BLOOD SUGAR DIAGNOSTIC STRIP TEST SCH ×4 (06:44→21:00)
[2022-04-10] MEDS: INSULIN LISPRO 100 UNITS/ML SUBCUT SCH ×4 (08:10→21:00)
[2022-04-10] MEDS: DULOXETINE HCL 30MG DR CAPSULE PO SCH (09:31)
[2022-04-10] MEDS: CARVEDILOL 3.125 MG TABLET PO SCH ×2 (09:32→17:46)
[2022-04-10] MEDS: MORPHINE SULFATE 2 MG/ML CPJ (NOT FOR IM USE) IV PRN (09:32)
[2022-04-10] MEDS: HEPARIN 5000 UNITS/ML VIAL SUBCUT SCH (09:33)
[2022-04-10 12:00] VITALS: BP 132/66
[2022-04-10] MEDS ORDERED: ACETAMINOPHEN 650MG/20.3ML UDC PO PRN (14:00)
[2022-04-10] MEDS: HYDROCODONE/ACETAMINOPHEN 5/325MG TABLET PO PRN ×2 (14:05→22:13)
[2022-04-10 16:00] VITALS: BP 159/78
[2022-04-10 20:00] VITALS: BP 160/87
[2022-04-10] MEDS: ATORVASTATIN CALCIUM 20MG TABLET PO SCH (22:08)
[2022-04-11] VITALS (7 sets, daily range): BP systolic 134–163; BP diastolic 68–92
[2022-04-11] MEDS: NITROGLYCERIN OINT 1GM/INCH UDPKT TD SCH ×2 (06:03→18:00)
[2022-04-11] MEDS: BLOOD SUGAR DIAGNOSTIC STRIP TEST SCH ×4 (07:55→20:18)
[2022-04-11] MEDS: INSULIN LISPRO 100 UNITS/ML SUBCUT SCH ×4 (08:10→20:19)
[2022-04-11] MEDS: DULOXETINE HCL 30MG DR CAPSULE PO SCH (10:19)
[2022-04-11] MEDS: CARVEDILOL 3.125 MG TABLET PO SCH ×2 (10:19→18:23)
[2022-04-11] MEDS ORDERED: POLYMYXIN B SULFATE 500000 UNITS/VIAL ONE (13:35)
[2022-04-11] MEDS ORDERED: VANCOMYCIN HCL 1 GM/VIAL ONE (13:35)
[2022-04-11] MEDS ORDERED: ONDANSETRON HCL 4MG/2ML INJ ONE (14:00)
[2022-04-11] MEDS ORDERED: DEXAMETHASONE 4MG/ML 1ML VIAL ONE (14:00)
[2022-04-11] MEDS ORDERED: LIDOCAINE HCL 1% 20ML VIAL (Pyxis) INJ ONE (14:00)
[2022-04-11] MEDS ORDERED: PROPOFOL 10MG/ML 100ML 0 ML IV ONE (14:01)
[2022-04-11] MEDS ORDERED: FENTANYL CITRATE/PF 50MCG/ML 2ML VIAL ONE (14:01)
[2022-04-11] MEDS ORDERED: MIDAZOLAM HCL 2 MG/2 ML VIAL ONE (14:01)
[2022-04-11] MEDS ORDERED: PROPOFOL 200MG/20ML VIAL IV ONE (14:03)
[2022-04-11] MEDS ORDERED: CEFAZOLIN SODIUM 1000MG/VIAL ONE (14:18)
[2022-04-11] MEDS ORDERED: PHENYLEPHRINE HCL 10 MG/ML 1ML (IV VIAL) IV ONE (14:22)
[2022-04-11] MEDS ORDERED: KETOROLAC 30MG/ML VIAL IV PRN (14:45)
[2022-04-11] MEDS ORDERED: DIPHENHYDRAMINE 50MG/ML VIAL IV PRN (14:45)
[2022-04-11] MEDS ORDERED: BUTORPHANOL TARTRATE 2 MG/ML VIAL IV PRN (14:45)
[2022-04-11] MEDS ORDERED: HYDROMORPHONE HCL/PF 2MG/ML CPJ IV PRN (14:45)
[2022-04-11] MEDS ORDERED: ONDANSETRON HCL 4MG/2ML INJ IV PRN (14:45)
[2022-04-11] MEDS ORDERED: BUPIVACAINE HCL/PF 0.25% (2.5MG/ML) 10ML ONE ×2 (14:48)
[2022-04-11] MEDS ORDERED: HYDROMORPHONE HCL/PF 2MG/ML CPJ ONE (14:50)
[2022-04-11] MEDS ORDERED: LABETALOL 5MG/ML SYR 20 MG/4 ML SYRINGE IV NR (16:45)
[2022-04-11] MEDS: ATORVASTATIN CALCIUM 20MG TABLET PO SCH (20:12)
[2022-04-11] MEDS: CLONIDINE 0.1MG TABLET PO PRN (20:12)
[2022-04-11] MEDS: HYDROCODONE/ACETAMINOPHEN 5/325MG TABLET PO PRN (20:47)
[2022-04-12 00:03] VITALS: BP 129/81
[2022-04-12] MEDS: HYDROCODONE/ACETAMINOPHEN 5/325MG TABLET PO PRN ×3 (02:42→17:50)
[2022-04-12 04:00] VITALS: BP 131/83
[2022-04-12] MEDS: NITROGLYCERIN OINT 1GM/INCH UDPKT TD SCH ×2 (06:00→17:52)
[2022-04-12] MEDS: MORPHINE SULFATE 2 MG/ML CPJ (NOT FOR IM USE) IV PRN ×2 (06:10→13:16)
[2022-04-12] MEDS: BLOOD SUGAR DIAGNOSTIC STRIP TEST SCH ×4 (06:43→21:00)
[2022-04-12] MEDS: INSULIN LISPRO 100 UNITS/ML SUBCUT SCH ×4 (07:41→21:00)
[2022-04-12 07:58] VITALS: BP 125/74
[2022-04-12] MEDS: DULOXETINE HCL 30MG DR CAPSULE PO SCH (09:20)
[2022-04-12] MEDS: CARVEDILOL 3.125 MG TABLET PO SCH ×2 (09:20→17:50)
[2022-04-12 11:44] VITALS: BP 138/51
[2022-04-12 15:59] VITALS: BP 149/80
[2022-04-12 20:00] VITALS: BP 145/85
[2022-04-12] MEDS: ATORVASTATIN CALCIUM 20MG TABLET PO SCH (22:22)
[2022-04-13] VITALS: BP 144/67
[2022-04-13] MEDS: HYDROCODONE/ACETAMINOPHEN 5/325MG TABLET PO PRN (00:04)
[2022-04-13 04:00] VITALS: BP 148/68
[2022-04-13] MEDS: NITROGLYCERIN OINT 1GM/INCH UDPKT TD SCH (05:45)
[2022-04-13] MEDS: BLOOD SUGAR DIAGNOSTIC STRIP TEST SCH ×4 (05:45→21:02)
[2022-04-13 07:17] LABS: HEMATOCRIT. 25.6 % (36.0-48.0); HEMOGLOBIN. 8.2 g/dL (12.0-16.0); MEAN PLATELET VOLUME 9.7 fl (7.4-10.4); PLATELET 244 x1000/uL (130-400); RED BLOOD CELL COUNT 3.16 mill/uL (4.2-5.4); RED CELL DISTRIBUTION WIDTH 17.6 % (11.6-14.6)
[2022-04-13 07:27] LABS: CHLORIDE 106 mEq/L (98-107)
[2022-04-13 08:00] VITALS: BP 152/93
[2022-04-13] MEDS: INSULIN LISPRO 100 UNITS/ML SUBCUT SCH ×4 (08:05→21:00)
[2022-04-13] MEDS: POTASSIUM CHLORIDE 20MEQ/PACKET PO NR ×2 (08:45→09:30)
[2022-04-13] MEDS: DULOXETINE HCL 30MG DR CAPSULE PO SCH (09:30)
[2022-04-13] MEDS: CARVEDILOL 3.125 MG TABLET PO SCH ×2 (09:30→17:58)
[2022-04-13] MEDS: MORPHINE SULFATE 2 MG/ML CPJ (NOT FOR IM USE) IV PRN (09:42)
[2022-04-13] MEDS ORDERED: POTASSIUM CHLORIDE 20MEQ TABLET SR PO NR (10:00)
[2022-04-13] MEDS: ASPIRIN 81MG TABLET PO SCH (10:27)
[2022-04-13] MEDS: CLOPIDOGREL 75MG TABLET PO SCH (10:27)
[2022-04-13 11:46] LABS: PLATELET ESTIMATE NORMAL
[2022-04-13 12:00] VITALS: BP 149/83
[2022-04-13] MEDS: GABAPENTIN 300MG CAPSULE PO SCH ×2 (13:36→20:52)
[2022-04-13] MEDS: HYDROCODONE/ACETAMINOPHEN 10/325MG TABLET PO PRN (13:41)
[2022-04-13 16:00] VITALS: BP 148/83
[2022-04-13 20:00] VITALS: BP 152/88
[2022-04-13] MEDS: ATORVASTATIN CALCIUM 20MG TABLET PO SCH (20:52)
[2022-04-14 00:01] VITALS: BP 160/95
[2022-04-14 04:00] VITALS: BP 155/88
[2022-04-14] MEDS: GABAPENTIN 300MG CAPSULE PO SCH ×3 (05:11→20:59)
[2022-04-14] MEDS: BLOOD SUGAR DIAGNOSTIC STRIP TEST SCH ×4 (05:58→20:59)
[2022-04-14] MEDS: HYDROCODONE/ACETAMINOPHEN 10/325MG TABLET PO PRN (05:59)
[2022-04-14] MEDS: INSULIN LISPRO 100 UNITS/ML SUBCUT SCH ×4 (07:29→20:59)
[2022-04-14 08:30] VITALS: BP 123/67
[2022-04-14] MEDS: AMLODIPINE 5MG TABLET PO SCH (09:24)
[2022-04-14] MEDS: CARVEDILOL 3.125 MG TABLET PO SCH ×2 (09:24→16:27)
[2022-04-14] MEDS: DULOXETINE HCL 30MG DR CAPSULE PO SCH (09:24)
[2022-04-14] MEDS: CLOPIDOGREL 75MG TABLET PO SCH (09:24)
[2022-04-14] MEDS: ASPIRIN 81MG TABLET PO SCH (09:24)
[2022-04-14] MEDS ORDERED: HYDR-4009 MT (10:53)
[2022-04-14] MEDS ORDERED: HYDR-4001 PO (10:53)
[2022-04-14] MEDS ORDERED: NALO4SPR BOTHNSTRLS (10:53)
[2022-04-14] MEDS ORDERED: AMLO5TAB88 PO (10:53)
[2022-04-14] MEDS ORDERED: CLOP75TA15 PO (10:53)
[2022-04-14] MEDS ORDERED: ACET650S25 PO (10:53)
[2022-04-14] MEDS ORDERED: ASPI-1497 MT (10:53)
[2022-04-14 12:00] VITALS: BP 124/82
[2022-04-14 15:46] VITALS: BP 119/50
[2022-04-14 20:00] VITALS: BP 140/66
[2022-04-14] MEDS: HYDROCODONE/ACETAMINOPHEN 5/325MG TABLET PO PRN (20:58)
[2022-04-14] MEDS: ATORVASTATIN CALCIUM 20MG TABLET PO SCH (20:59)
[2022-04-15] VITALS: BP 124/63
[2022-04-15 04:00] VITALS: BP 137/76
[2022-04-15] MEDS: GABAPENTIN 300MG CAPSULE PO SCH ×3 (06:08→21:13)
[2022-04-15] MEDS: INSULIN LISPRO 100 UNITS/ML SUBCUT SCH ×4 (06:12→21:00)
[2022-04-15] MEDS: BLOOD SUGAR DIAGNOSTIC STRIP TEST SCH ×4 (06:12→21:13)
[2022-04-15 06:50] LABS: HEMATOCRIT. 25.9 % (36.0-48.0); HEMOGLOBIN. 8.5 g/dL (12.0-16.0); MEAN CORPUSCULAR VOLUME 79.4 fL (81.0-99.0); PLATELET 278 x1000/uL (130-400); RED BLOOD CELL COUNT 3.27 mill/uL (4.2-5.4); RED CELL DISTRIBUTION WIDTH 17.3 % (11.6-14.6)
[2022-04-15] MEDS: HYDROCODONE/ACETAMINOPHEN 10/325MG TABLET PO PRN (06:59)
[2022-04-15 07:23] LABS: CHLORIDE 106 mEq/L (98-107)
[2022-04-15 08:00] VITALS: BP 134/74
[2022-04-15] MEDS: AMLODIPINE 5MG TABLET PO SCH (10:20)
[2022-04-15] MEDS: CLOPIDOGREL 75MG TABLET PO SCH (10:20)
[2022-04-15] MEDS: ASPIRIN 81MG TABLET PO SCH (10:20)
[2022-04-15] MEDS: DULOXETINE HCL 30MG DR CAPSULE PO SCH (10:20)
[2022-04-15] MEDS: CARVEDILOL 3.125 MG TABLET PO SCH ×2 (10:22→17:54)
[2022-04-15] MEDS ORDERED: MAGNESIUM GLUCONATE 500MG TABLET PO NR (11:00)
[2022-04-15 12:54] LABS: PLATELET ESTIMATE NORMAL
[2022-04-15 16:00] VITALS: BP 118/76
[2022-04-15] MEDS: MORPHINE SULFATE 2 MG/ML CPJ (NOT FOR IM USE) IV PRN (17:55)
[2022-04-15 20:00] VITALS: BP 125/73
[2022-04-15] MEDS: ATORVASTATIN CALCIUM 20MG TABLET PO SCH (21:13)
[2022-04-16] VITALS: BP 119/90
[2022-04-16 04:00] VITALS: BP 130/79
[2022-04-16] MEDS: GABAPENTIN 300MG CAPSULE PO SCH ×3 (05:17→21:39)
[2022-04-16] MEDS: BLOOD SUGAR DIAGNOSTIC STRIP TEST SCH ×4 (05:46→21:40)
[2022-04-16] MEDS: INSULIN LISPRO 100 UNITS/ML SUBCUT SCH ×4 (05:46→21:40)
[2022-04-16 06:24] LABS: BASOPHILS % 0.4 % (0.0-2.0); EOSINOPHILS % 4.3 % (0.0-5.0); HEMATOCRIT. 27.6 % (36.0-48.0); LYMPHOCYTES % 44.5 % (20.0-50.0); MEAN CORPUSCULAR HEMOGLOBIN 26.4 pg (28.0-32.0); MEAN CORPUSCULAR VOLUME 80.6 fL (81.0-99.0); MEAN PLATELET VOLUME 9.1 fl (7.4-10.4); MONOCYTES % 14.6 % (2.0-8.0); NEUTROPHILS % 36.2 % (40.0-76.0); PLATELET 341 x1000/uL (130-400); RED BLOOD CELL COUNT 3.42 mill/uL (4.2-5.4); RED CELL DISTRIBUTION WIDTH 16.6 % (11.6-14.6)
[2022-04-16 07:46] LABS: CHLORIDE 106 mEq/L (98-107)
[2022-04-16 08:00] VITALS: BP 146/82
[2022-04-16] MEDS: CLOPIDOGREL 75MG TABLET PO SCH (08:30)
[2022-04-16] MEDS: ASPIRIN 81MG TABLET PO SCH (08:30)
[2022-04-16] MEDS: DULOXETINE HCL 30MG DR CAPSULE PO SCH (08:30)
[2022-04-16] MEDS: AMLODIPINE 5MG TABLET PO SCH (08:31)
[2022-04-16] MEDS: CARVEDILOL 3.125 MG TABLET PO SCH ×2 (08:31→17:43)
[2022-04-16] MEDS: HYDROCODONE/ACETAMINOPHEN 10/325MG TABLET PO PRN (08:36)
[2022-04-16] MEDS ORDERED: MAGNESIUM GLUCONATE 500MG TABLET PO SCH (10:00)
[2022-04-16] MEDS ORDERED: NALOXONE HCL 0.4MG/ML VIAL IV PRN (12:15)
[2022-04-16] MEDS: MORPHINE SULFATE 2 MG/ML CPJ (NOT FOR IM USE) IV PRN ×2 (14:12→19:14)
[2022-04-16 16:00] VITALS: BP 121/74
[2022-04-16 20:00] VITALS: BP 132/79
[2022-04-16] MEDS: ATORVASTATIN CALCIUM 20MG TABLET PO SCH (21:39)
[2022-04-17 04:00] VITALS: BP 130/70
[2022-04-17] MEDS: INSULIN LISPRO 100 UNITS/ML SUBCUT SCH ×3 (06:06→17:10)
[2022-04-17] MEDS: GABAPENTIN 300MG CAPSULE PO SCH ×2 (06:06→13:08)
[2022-04-17] MEDS: BLOOD SUGAR DIAGNOSTIC STRIP TEST SCH ×3 (06:06→17:10)
[2022-04-17 06:33] LABS: BASOPHILS % 0.3 % (0.0-2.0); EOSINOPHILS % 4.7 % (0.0-5.0); HEMATOCRIT. 26.8 % (36.0-48.0); HEMOGLOBIN. 8.6 g/dL (12.0-16.0); LYMPHOCYTES % 39.3 % (20.0-50.0); MEAN CORPUSCULAR HEMOGLOBIN 26.2 pg (28.0-32.0); MEAN CORPUSCULAR VOLUME 81.5 fL (81.0-99.0); MEAN PLATELET VOLUME 9.2 fl (7.4-10.4); MONOCYTES % 13.5 % (2.0-8.0); NEUTROPHILS % 42.2 % (40.0-76.0); PLATELET 308 x1000/uL (130-400); RED BLOOD CELL COUNT 3.29 mill/uL (4.2-5.4); RED CELL DISTRIBUTION WIDTH 16.3 % (11.6-14.6)
[2022-04-17 06:36] LABS: CHLORIDE 105 mEq/L (98-107)
[2022-04-17 08:00] VITALS: BP 137/72
[2022-04-17] MEDS: DULOXETINE HCL 30MG DR CAPSULE PO SCH (09:00)
[2022-04-17] MEDS: CARVEDILOL 3.125 MG TABLET PO SCH ×2 (10:36→17:09)
[2022-04-17] MEDS: ASPIRIN 81MG TABLET PO SCH (10:36)
[2022-04-17] MEDS: CLOPIDOGREL 75MG TABLET PO SCH (10:36)
[2022-04-17] MEDS: AMLODIPINE 5MG TABLET PO SCH (10:37)
[2022-04-17] MEDS: HYDROCODONE/ACETAMINOPHEN 10/325MG TABLET PO PRN ×2 (10:52→17:20)
[2022-04-17] MEDS ORDERED: MAGNESIUM 2 G PREMIX 50 ML IV NR (11:00)
[2022-04-17 12:00] VITALS: BP 131/78
[2022-04-17 16:00] VITALS: BP 124/72
[2022-04-17 16:11] VITALS: BP 131/78
[2022-04-17 17:20] VITALS: BP 128/73
== END 2022-04-17 19:01 | disposition home health service (06) | DRG 305 ==
LOC: ER 13:02 → EDBEDREQTM 16:57 → EDBEDREQ 16:58 → EDBEDREQTM 17:31 → EDBEDREQ 17:31 → EDBEDREQSVC 19:39 → EDBEDREQTM 19:39 → EDBEDREQ 19:39 → 7WST 19:47 → ENRESERV 23:42 → 6EST 04-16 12:12
PROVIDERS: ADMIT Internal Medicine; ATTEND Internal Medicine
PROC: 02HV33Z Insertion of Infusion Device into Superior Vena Cava, Percutaneous Approach (ICD-10-PCS; 2022-04-05)
PROC: B548ZZA Ultrasonography of Superior Vena Cava, Guidance (ICD-10-PCS; 2022-04-05)
PROC: B5181ZA Fluoroscopy of Superior Vena Cava using Low Osmolar Contrast, Guidance (ICD-10-PCS; 2022-04-05)
PROC: 0Y6J0Z1 Detachment at Left Lower Leg, High, Open Approach (ICD-10-PCS; principal; 2022-04-11)
DX: E11.52 Type 2 diabetes mellitus with diabetic peripheral angiopathy with gangrene (principal); G93.41 Metabolic encephalopathy; L89.153 Pressure ulcer of sacral region, stage 3; E87.2 Acidosis; E44.0 Moderate protein-calorie malnutrition; E11.621 Type 2 diabetes mellitus with foot ulcer; D64.9 Anemia, unspecified; E46 Unspecified protein-calorie malnutrition; L03.116 Cellulitis of left lower limb; I11.0 Hypertensive heart disease with heart failure; I50.9 Heart failure, unspecified; I63.9 Cerebral infarction, unspecified; E78.5 Hyperlipidemia, unspecified; L97.529 Non-pressure chronic ulcer of other part of left foot with unspecified severity; E66.9 Obesity, unspecified; Z20.822 Contact with and (suspected) exposure to COVID-19; E87.5 Hyperkalemia; R09.02 Hypoxemia; Z79.4 Long term (current) use of insulin; Z79.84 Long term (current) use of oral hypoglycemic drugs; Z79.899 Other long term (current) drug therapy; Z71.3 Dietary counseling and surveillance; Z68.25 Body mass index [BMI] 25.0-25.9, adult; N39.0 Urinary tract infection, site not specified; Z89.611 Acquired absence of right leg above knee
CPT/HCPCS: 36415; 36573; 36600; 70551; 71045; 73610; 73630; 80048; 80053; 80061; 80305; 81003; 82040; 82140; 82375; 82805; 82962; 83036; 83605; 83735; 84134; 84145; 85025; 86850; 86900; 86920; 87426; 88307; 88311; 93005; 93306; 93880; 93923; 93971; 97110; 97161; 97166; 97530; 99291; C1725; J0690; J1100; J1170; J1644; J1815; J2250; J2270; J2370; J2405; J2543; J2704; J3010; J3370; J3475; J3490; J7030; J7060; L1830

== ENCOUNTER 2022-08-20 11:45 | Emergency (ER) | payer MEDICAID, OTHER ==
[~2022-08-20] VITALS: Ht 172.7 cm; Wt 77.0 kg
[~2022-08-20 11:45] MED LIST changes: +ACET650S25 PO; -AMLO10TA80 MT; +AMLO5TAB88 PO; +ASPI-1160 MT; +ASPI-1497 MT; -CLON-457 MT; +CLOP75TA15 PO; -CLOT15CR27 TP; -DOCU250C14 MT; -ENOX40DI8 SQ; -INSU100V37 SQ; -LISI10TA26 PO; -METF-416 MT; -ONDA4TAB50 MT
[2022-08-20] MEDS ORDERED: BO1 TP (15:04)
[2022-08-20] MEDS ORDERED: KETOROLAC 15MG/ML VIAL IV ONE (18:00)
[2022-08-20 21:11] VITALS: BP 141/68
== END 2022-08-20 21:12 | disposition home or self-care (01) ==
LOC: ER 11:45
DX: T81.30XA Disruption of wound, unspecified, initial encounter (principal); I10 Essential (primary) hypertension; E11.9 Type 2 diabetes mellitus without complications; I69.351 Hemiplegia and hemiparesis following cerebral infarction affecting right dominant side; Z89.611 Acquired absence of right leg above knee; Z89.512 Acquired absence of left leg below knee; Z79.82 Long term (current) use of aspirin; Y83.5 Amputation of limb(s) as the cause of abnormal reaction of the patient, or of later complication, without mention of misadventure at the time of the procedure; Y92.018 Other place in single-family (private) house as the place of occurrence of the external cause
CPT/HCPCS: 96374; 99283; J1885; Z7610

== ENCOUNTER 2022-10-06 06:21 | Inpatient (IN) | payer MEDICAID, OTHER ==
[~2022-10-06] VITALS: Ht 165.1 cm; Wt 78.1 kg
[~2022-10-06 06:21] MED LIST changes: +BO1 TP
[2022-10-06] MEDS: SODIUM CHLORIDE 0.9% 1,000 ML IV ONE ×2 (07:56→10:42)
[2022-10-06] MEDS: KETOROLAC 30MG/ML VIAL IV STA ×2 (07:56→10:42)
[2022-10-06 08:44] LABS: HEMOGLOBIN. 9.5 g/dL (12.0-16.0); MEAN CORPUSCULAR HEMOGLOBIN 24.4 pg (28.0-32.0); MEAN CORPUSCULAR VOLUME 76.8 fL (81.0-99.0); MEAN PLATELET VOLUME 10.1 fl (7.4-10.4); PLATELET 279 x1000/uL (130-400); RED BLOOD CELL COUNT 3.91 mill/uL (4.2-5.4); RED CELL DISTRIBUTION WIDTH 15.9 % (11.6-14.6)
[2022-10-06 08:51] LABS: CHLORIDE 115 mEq/L (98-107)
[2022-10-06 10:22] LABS: PLATELET ESTIMATE NORMAL
[2022-10-06] MEDS ORDERED: ONDANSETRON HCL 4MG/2ML INJ IV STA (13:23)
[2022-10-06] MEDS ORDERED: MORPHINE SULFATE 4 MG/ML CPJ (NOT FOR IM USE) IV STA (13:23)
[2022-10-06] MEDS ORDERED: METRONIDAZOLE 500 MG PREMIX 100 ML IV ONE (14:00)
[2022-10-06] MEDS ORDERED: CEFTRIAXONE 1 G PREMIX 50 ML IV ONE (14:00)
[2022-10-06 17:35] VITALS: BP 135/78
[2022-10-06] MEDS ORDERED: DEXTROSE 50% WATER 50ML SYRINGE IV PRN (18:15)
[2022-10-06] MEDS ORDERED: SORBITOL 70% SOLN 30ML PO NR (18:15)
[2022-10-06] MEDS ORDERED: NALOXONE HCL 0.4MG/ML VIAL IV PRN (18:30)
[2022-10-06 20:00] VITALS: BP 148/74
[2022-10-06] MEDS: INSULIN LISPRO 100 UNITS/ML SUBCUT SCH (21:00)
[2022-10-06] MEDS: BLOOD SUGAR DIAGNOSTIC STRIP TEST SCH (21:00)
[2022-10-07] VITALS: BP 160/83
[2022-10-07 04:00] VITALS: BP 160/83
[2022-10-07] MEDS ORDERED: BISACODYL 10MG SUPP PR PRN (06:00)
[2022-10-07] MEDS: HYDROCODONE/ACETAMINOPHEN 10/325MG TABLET PO PRN (06:40)
[2022-10-07] MEDS: BLOOD SUGAR DIAGNOSTIC STRIP TEST SCH ×2 (06:41→12:04)
[2022-10-07] MEDS: INSULIN LISPRO 100 UNITS/ML SUBCUT SCH ×2 (07:48→12:04)
[2022-10-07 08:00] VITALS: BP 155/67
[2022-10-07 08:54] LABS: FERRITIN 67 ng/mL (10-291)
[2022-10-07 08:59] LABS: TOTAL IRON BINDING CAPACITY 270 ug/dL (250-450)
[2022-10-07 09:04] LABS: VITAMIN B12 SERUM 451 pg/mL (211-911)
[2022-10-07] MEDS: LISINOPRIL 20MG TABLET PO SCH (09:16)
[2022-10-07] MEDS: PANTOPRAZOLE SODIUM 40 MG/VIAL IV SCH (09:16)
[2022-10-07 12:00] VITALS: BP 162/72
[2022-10-07] MEDS ORDERED: ONDANSETRON HCL 4MG/2ML INJ IV PRN (14:30)
[2022-10-07 16:00] VITALS: BP 146/82
[2022-10-07] MEDS: BISACODYL 5MG TABLET PO SCH ×2 (18:49→22:06)
[2022-10-07] MEDS: FOLIC ACID 1MG TABLET PO SCH (18:49)
[2022-10-07] MEDS: METOCLOPRAMIDE HCL 10MG/2ML VIAL IV SCH ×2 (18:49→23:37)
[2022-10-07] MEDS: IRON SUCROSE COMPLEX 100 MG/5 ML ML IV SCH (18:50)
[2022-10-07] MEDS: SORBITOL 70% SOLN 30ML PO SCH ×2 (18:51→21:45)
[2022-10-07 20:00] VITALS: BP 138/82
[2022-10-08] VITALS: BP 144/89
[2022-10-08 03:38] LABS: BASOPHILS % 0.2 % (0.0-2.0); EOSINOPHILS % 0.3 % (0.0-5.0); HEMATOCRIT. 31.6 % (36.0-48.0); HEMOGLOBIN. 10.4 g/dL (12.0-16.0); LYMPHOCYTES % 9.2 % (20.0-50.0); MEAN CORPUSCULAR VOLUME 75.5 fL (81.0-99.0); MONOCYTES % 5.4 % (2.0-8.0); NEUTROPHILS % 84.9 % (40.0-76.0); PLATELET 363 x1000/uL (130-400); RED BLOOD CELL COUNT 4.18 mill/uL (4.2-5.4); RED CELL DISTRIBUTION WIDTH 15.9 % (11.6-14.6)
[2022-10-08 03:45] LABS: INR 1.1; PROTHROMBIN TIME 11.7 sec (9.6-11.0)
[2022-10-08 04:00] VITALS: BP 142/84
[2022-10-08 04:01] LABS: CHLORIDE 116 mEq/L (98-107)
[2022-10-08 07:56] VITALS: BP 109/64
[2022-10-08] MEDS: PANTOPRAZOLE SODIUM 40 MG/VIAL IV SCH (08:47)
[2022-10-08] MEDS: FOLIC ACID 1MG TABLET PO SCH (08:47)
[2022-10-08] MEDS: LISINOPRIL 20MG TABLET PO SCH (08:48)
[2022-10-08] MEDS: DEXTROSE 5% WATER 1,000 ML IV SCH (09:00)
[2022-10-08 11:53] VITALS: BP 146/81
[2022-10-08] MEDS: HYDROCODONE/ACETAMINOPHEN 10/325MG TABLET PO PRN (12:19)
[2022-10-08] MEDS ORDERED: PROPOFOL 200MG/20ML VIAL IV ONE (12:34)
[2022-10-08] MEDS ORDERED: MIDAZOLAM HCL 2 MG/2 ML VIAL ONE (13:21)
[2022-10-08] MEDS ORDERED: FENTANYL CITRATE/PF 50MCG/ML 2ML VIAL ONE (13:41)
[2022-10-08 16:07] VITALS: BP 125/57
[2022-10-08] MEDS: IRON SUCROSE COMPLEX 100 MG/5 ML ML IV SCH (19:28)
[2022-10-08 20:00] VITALS: BP 143/71
[2022-10-08] MEDS ORDERED: MESALAMINE 1000MG SUPPOSITORY PR SCH (21:00)
[2022-10-08] MEDS: HYDROCORTISONE ACETATE 25MG SUPP PR SCH (21:00)
[2022-10-09] MEDS: DEXTROSE 5% WATER 1,000 ML IV SCH (05:00)
[2022-10-09 07:58] VITALS: BP 146/78
[2022-10-09] MEDS: HYDROCORTISONE ACETATE 25MG SUPP PR SCH (09:00)
[2022-10-09] MEDS: PANTOPRAZOLE SODIUM 40 MG/VIAL IV SCH (09:53)
[2022-10-09] MEDS: LISINOPRIL 20MG TABLET PO SCH (09:53)
[2022-10-09] MEDS: FOLIC ACID 1MG TABLET PO SCH (09:53)
[2022-10-09] MEDS: HYDROCODONE/ACETAMINOPHEN 10/325MG TABLET PO PRN (09:53)
[2022-10-09] MEDS ORDERED: HYDR25SU11 PR (11:06)
[2022-10-09] MEDS ORDERED: MESA1000 PR (11:06)
[2022-10-09 11:33] VITALS: BP 134/74
[2022-10-09 14:13] LABS: BASOPHILS % 0.4 % (0.0-2.0); EOSINOPHILS % 2.5 % (0.0-5.0); LYMPHOCYTES % 40.2 % (20.0-50.0); MEAN CORPUSCULAR HEMOGLOBIN 24.4 pg (28.0-32.0); MEAN CORPUSCULAR VOLUME 75.6 fL (81.0-99.0); MEAN PLATELET VOLUME 8.9 fl (7.4-10.4); MONOCYTES % 8.7 % (2.0-8.0); NEUTROPHILS % 48.2 % (40.0-76.0); PLATELET 313 x1000/uL (130-400); RED BLOOD CELL COUNT 3.62 mill/uL (4.2-5.4); RED CELL DISTRIBUTION WIDTH 15.6 % (11.6-14.6)
[2022-10-09 14:17] LABS: HEMOGLOBIN. 8.8 g/dL (12.0-16.0)
[2022-10-09 14:18] LABS: HEMATOCRIT. 27.3 % (36.0-48.0)
[2022-10-09 14:30] LABS: CHLORIDE 109 mEq/L (98-107)
[2022-10-09 16:06] VITALS: BP 128/92
[2022-10-09 16:53] VITALS: BP 146/78
== END 2022-10-09 18:15 | disposition home or self-care (01) | DRG 254 ==
LOC: ER 06:21 → EDBEDREQTM 10:41 → 4WST 13:50 → EDBEDREQ 13:55 → ENRESERV 16:39 → 6EST 19:00
PROVIDERS: ADMIT Internal Medicine; ATTEND Internal Medicine
PROC: 0DBP8ZX Excision of Rectum, Via Natural or Artificial Opening Endoscopic, Diagnostic (ICD-10-PCS; principal; 2022-10-09)
DX: K62.3 Rectal prolapse (principal); E11.51 Type 2 diabetes mellitus with diabetic peripheral angiopathy without gangrene; K56.7 Ileus, unspecified; Z89.611 Acquired absence of right leg above knee; D50.9 Iron deficiency anemia, unspecified; E66.9 Obesity, unspecified; I10 Essential (primary) hypertension; Z20.822 Contact with and (suspected) exposure to COVID-19; K80.20 Calculus of gallbladder without cholecystitis without obstruction; K59.00 Constipation, unspecified; K64.9 Unspecified hemorrhoids; Z68.28 Body mass index [BMI] 28.0-28.9, adult; Z86.73 Personal history of transient ischemic attack (TIA), and cerebral infarction without residual deficits; Z79.82 Long term (current) use of aspirin; Z74.01 Bed confinement status; Z79.02 Long term (current) use of antithrombotics/antiplatelets; Z89.511 Acquired absence of right leg below knee; Z89.512 Acquired absence of left leg below knee; Z82.49 Family history of ischemic heart disease and other diseases of the circulatory system; Z83.3 Family history of diabetes mellitus
CPT/HCPCS: 36415; 74018; 74176; 80048; 80053; 82607; 82728; 82746; 82962; 83540; 83550; 85025; 85044; 87426; 88305; 99291; C9113; J0696; J1885; J2250; J2270; J2405; J2704; J2765; J3010; J3490; J7030; J7070

== ENCOUNTER 2023-01-02 09:44 | Inpatient (IN) | payer MEDICAID, OTHER ==
[~2023-01-02] VITALS: Ht 154.9 cm; Wt 54.9 kg
[~2023-01-02 09:44] MED LIST changes: +HYDR25SU11 PR; +MESA1000 PR
[2023-01-02] MEDS ORDERED: KETOROLAC 30MG/ML VIAL IV STA (10:11)
[2023-01-02] MEDS ORDERED: SODIUM CHLORIDE 0.9% 1,000 ML IV ONE (10:15)
[2023-01-02 10:45] LABS: BASOPHILS % 0.3 % (0.0-2.0); EOSINOPHILS % 3.1 % (0.0-5.0); HEMATOCRIT. 33.1 % (36.0-48.0); HEMOGLOBIN. 10.9 g/dL (12.0-16.0); LYMPHOCYTES % 30.3 % (20.0-50.0); MEAN CORPUSCULAR HEMOGLOBIN 27.3 pg (28.0-32.0); MEAN CORPUSCULAR VOLUME 82.5 fL (81.0-99.0); MEAN PLATELET VOLUME 9.3 fl (7.4-10.4); MONOCYTES % 12.7 % (2.0-8.0); NEUTROPHILS % 53.6 % (40.0-76.0); PLATELET 218 x1000/uL (130-400); RED CELL DISTRIBUTION WIDTH 15.1 % (11.6-14.6)
[2023-01-02 10:49] LABS: CHLORIDE 111 mEq/L (98-107)
[2023-01-02] MEDS ORDERED: MORPHINE SULFATE 4 MG/ML CPJ (NOT FOR IM USE) IV STA (12:47)
[2023-01-02] MEDS ORDERED: ONDANSETRON HCL 4MG/2ML INJ IV STA (12:47)
[2023-01-02] MEDS ORDERED: CEFTRIAXONE 1 G PREMIX 50 ML IV ONE (13:30)
[2023-01-02] MEDS ORDERED: KETOROLAC 30MG/ML VIAL IV NR (15:30)
[2023-01-02] MEDS: MORPHINE SULFATE 4 MG/ML CPJ (NOT FOR IM USE) IV NR ×2 (15:30→18:10)
[2023-01-02] MEDS ORDERED: HYDROCODONE/ACETAMINOPHEN 10/325MG TABLET PO PRN (19:20)
[2023-01-02 20:00] VITALS: BP 127/75
[2023-01-02] MEDS ORDERED: DEXTROSE 50% WATER 50ML SYRINGE IV PRN (20:30)
[2023-01-02] MEDS: BLOOD SUGAR DIAGNOSTIC STRIP TEST SCH (21:00)
[2023-01-02] MEDS: INSULIN LISPRO 100 UNITS/ML SUBCUT SCH (21:00)
[2023-01-02] MEDS: CARVEDILOL 6.25 MG TABLET PO SCH (22:23)
[2023-01-02] MEDS: GABAPENTIN 300MG CAPSULE PO SCH (22:23)
[2023-01-02] MEDS: DOCUSATE SODIUM 250MG CAPSULE PO SCH (22:23)
[2023-01-02] MEDS: ENOXAPARIN 30MG/0.3ML SYR SUBCUT SCH (22:27)
[2023-01-02 23:36] LABS: BASOPHILS % 0.3 % (0.0-2.0); EOSINOPHILS % 4.1 % (0.0-5.0); HEMATOCRIT. 30.4 % (36.0-48.0); LYMPHOCYTES % 40.8 % (20.0-50.0); MEAN CORPUSCULAR HEMOGLOBIN 27.2 pg (28.0-32.0); MEAN CORPUSCULAR VOLUME 82.6 fL (81.0-99.0); MEAN PLATELET VOLUME 9.1 fl (7.4-10.4); MONOCYTES % 11.8 % (2.0-8.0); PLATELET 209 x1000/uL (130-400); RED BLOOD CELL COUNT 3.68 mill/uL (4.2-5.4); RED CELL DISTRIBUTION WIDTH 15.3 % (11.6-14.6)
[2023-01-02 23:38] LABS: CHLORIDE 114 mEq/L (98-107)
[2023-01-02 23:45] LABS: HDL CHOLESTEROL 43 mg/dL (40-59); LDL CHOLESTEROL 50 mg/dL (5-100)
[2023-01-03] VITALS (7 sets, daily range): BP systolic 112–177; BP diastolic 67–96
[2023-01-03] MEDS: GABAPENTIN 300MG CAPSULE PO SCH ×3 (05:51→21:59)
[2023-01-03] MEDS: BLOOD SUGAR DIAGNOSTIC STRIP TEST SCH ×2 (05:51→12:20)
[2023-01-03] MEDS: INSULIN LISPRO 100 UNITS/ML SUBCUT SCH ×2 (05:52→12:50)
[2023-01-03] MEDS: METFORMIN HCL 500MG TABLET PO SCH ×2 (09:22→21:59)
[2023-01-03] MEDS: DULOXETINE HCL 30MG DR CAPSULE PO SCH (09:22)
[2023-01-03] MEDS: PANTOPRAZOLE 40MG DR TABLET PO SCH (09:23)
[2023-01-03] MEDS: CARVEDILOL 6.25 MG TABLET PO SCH ×2 (09:23→21:59)
[2023-01-03] MEDS: ENOXAPARIN 30MG/0.3ML SYR SUBCUT SCH (09:24)
[2023-01-03] MEDS: DOCUSATE SODIUM 250MG CAPSULE PO SCH ×2 (09:32→21:59)
[2023-01-03] MEDS ORDERED: LACTULOSE 20G/30ML UDC PO PRN (10:45)
[2023-01-03] MEDS: ONDANSETRON HCL 4MG/2ML INJ IV PRN (23:09)
[2023-01-04] VITALS: BP 123/81
[2023-01-04] MEDS: PANTOPRAZOLE 40MG DR TABLET PO SCH (06:42)
[2023-01-04] MEDS: GABAPENTIN 300MG CAPSULE PO SCH ×2 (06:42→14:45)
[2023-01-04 08:00] VITALS: BP 145/74
[2023-01-04] MEDS: DOCUSATE SODIUM 250MG CAPSULE PO SCH (09:00)
[2023-01-04] MEDS ORDERED: ENOXAPARIN 40MG/0.4ML SYR SUBCUT SCH (09:00)
[2023-01-04] MEDS ORDERED: POLY17PO3 MT (09:02)
[2023-01-04] MEDS ORDERED: DOCU250C69 MT (09:02)
[2023-01-04] MEDS: CARVEDILOL 6.25 MG TABLET PO SCH (09:28)
[2023-01-04] MEDS: METFORMIN HCL 500MG TABLET PO SCH (09:28)
[2023-01-04] MEDS: DULOXETINE HCL 30MG DR CAPSULE PO SCH (09:28)
[2023-01-04 12:00] VITALS: BP 175/79
[2023-01-04 13:45] VITALS: BP 145/74
[2023-01-04] MEDS: ONDANSETRON HCL 4MG/2ML INJ IV PRN (14:45)
== END 2023-01-04 15:45 | disposition home or self-care (01) ==
LOC: ER 09:44 → 6EST 15:09 → EDBEDREQTM 15:24 → EDBEDREQ 15:24 → ENRESERV 16:45
PROVIDERS: ADMIT Internal Medicine; ATTEND Internal Medicine
DX: K80.20 Calculus of gallbladder without cholecystitis without obstruction (principal); D64.9 Anemia, unspecified; K56.41 Fecal impaction; E11.9 Type 2 diabetes mellitus without complications; I10 Essential (primary) hypertension; Z86.73 Personal history of transient ischemic attack (TIA), and cerebral infarction without residual deficits; Z89.511 Acquired absence of right leg below knee; Z83.3 Family history of diabetes mellitus; Z82.49 Family history of ischemic heart disease and other diseases of the circulatory system; Z79.4 Long term (current) use of insulin
CPT/HCPCS: 36415; 71045; 74176; 76705; 80053; 80061; 82962; 83036; 84484; 85025; 93005; 99285; J0696; J1650; J1815; J1885; J2270; J2405; J7030

== ENCOUNTER 2023-01-16 12:20 | Emergency (ER) | payer MEDICAID, OTHER ==
[~2023-01-16] VITALS: Ht 134.6 cm; Wt 63.0 kg
[~2023-01-16 12:20] MED LIST changes: +DOCU250C69 MT; +POLY17PO3 MT
[2023-01-16] MEDS ORDERED: KETOROLAC 15MG/ML VIAL IV ONE (13:15)
[2023-01-16 15:31] LABS: BASOPHILS % 0.2 % (0.0-2.0); HEMATOCRIT. 30.7 % (36.0-48.0); HEMOGLOBIN. 9.9 g/dL (12.0-16.0); LYMPHOCYTES % 38.9 % (20.0-50.0); MEAN CORPUSCULAR HEMOGLOBIN 26.8 pg (28.0-32.0); MEAN CORPUSCULAR VOLUME 82.7 fL (81.0-99.0); MEAN PLATELET VOLUME 9.5 fl (7.4-10.4); MONOCYTES % 9.3 % (2.0-8.0); NEUTROPHILS % 48.6 % (40.0-76.0); PLATELET 283 x1000/uL (130-400); RED BLOOD CELL COUNT 3.71 mill/uL (4.2-5.4); RED CELL DISTRIBUTION WIDTH 15.1 % (11.6-14.6)
[2023-01-16 15:43] LABS: CHLORIDE 115 mEq/L (98-107)
[2023-01-16 16:30] LABS: PROTHROMBIN TIME 10.9 sec (9.6-11.0)
[2023-01-16] MEDS ORDERED: NA PHOS,M-B/NA PHOS,DI-BA ENEMA 118ML PR ONE (16:45)
[2023-01-16] MEDS ORDERED: POLYETHYLENE GLYCOL 3350 (17GM) 1 DOSE PACK PO ONE (16:45)
[2023-01-16] MEDS ORDERED: POLY17PO3 MT (17:01)
[2023-01-16] MEDS ORDERED: SENN-178 MT (17:01)
[2023-01-16] MEDS ORDERED: NA P133E4 RC (17:01)
[2023-01-16] MEDS ORDERED: DOCU250C69 MT (17:01)
[2023-01-16 19:06] VITALS: BP 133/59
== END 2023-01-17 09:51 | disposition home or self-care (01) ==
LOC: ER 12:20
DX: K56.41 Fecal impaction (principal); E11.9 Type 2 diabetes mellitus without complications; I10 Essential (primary) hypertension; Z86.73 Personal history of transient ischemic attack (TIA), and cerebral infarction without residual deficits; Z89.512 Acquired absence of left leg below knee; Z89.511 Acquired absence of right leg below knee
CPT/HCPCS: 36415; 74176; 80053; 83690; 85025; 85610; 96374; 99285; J1885; Z7610

== ENCOUNTER 2023-04-02 09:02 | Emergency (ER) | payer MEDICAID ==
[~2023-04-02] VITALS: Ht 165.1 cm; Wt 100.0 kg
[~2023-04-02 09:02] MED LIST changes: +NA P133E4 RC; +SENN-178 MT
[2023-04-02] MEDS ORDERED: ONDANSETRON HCL 4MG/2ML INJ IV ONE (10:30)
[2023-04-02] MEDS ORDERED: MORPHINE SULFATE 4 MG/ML CPJ (NOT FOR IM USE) IV ONE (10:30)
[2023-04-02 10:33] VITALS: BP 154/83
[2023-04-02 10:41] LABS: BASOPHILS % 0.2 % (0.0-2.0); EOSINOPHILS % 3.7 % (0.0-5.0); HEMATOCRIT. 32.8 % (36.0-48.0); HEMOGLOBIN. 10.6 g/dL (12.0-16.0); LYMPHOCYTES % 24.8 % (20.0-50.0); MEAN CORPUSCULAR HEMOGLOBIN 27.6 pg (28.0-32.0); MEAN CORPUSCULAR VOLUME 85.4 fL (81.0-99.0); MONOCYTES % 10.2 % (2.0-8.0); NEUTROPHILS % 61.1 % (40.0-76.0); PLATELET 209 x1000/uL (130-400); RED BLOOD CELL COUNT 3.84 mill/uL (4.2-5.4); RED CELL DISTRIBUTION WIDTH 14.7 % (11.6-14.6)
[2023-04-02 10:50] LABS: HCG SCREEN NEGATIVE
[2023-04-02 10:51] LABS: CHLORIDE 110 mEq/L (98-107)
== END 2023-04-02 16:47 | disposition home or self-care (01) ==
LOC: ER 09:02
DX: K80.50 Calculus of bile duct without cholangitis or cholecystitis without obstruction (principal); E11.9 Type 2 diabetes mellitus without complications; I10 Essential (primary) hypertension
CPT/HCPCS: 36415; 76705; 80053; 82962; 83690; 84703; 85025; 96374; 96375; 99285; J2270; J2405

== ENCOUNTER 2023-05-03 16:27 | Emergency (ER) | payer MEDICAID, OTHER ==
[~2023-05-03] VITALS: Ht 162.6 cm; Wt 73.0 kg
[2023-05-03 17:35] LABS: BASOPHILS % 0.3 % (0.0-2.0); EOSINOPHILS % 4.8 % (0.0-5.0); HEMATOCRIT. 30.2 % (36.0-48.0); HEMOGLOBIN. 10.3 g/dL (12.0-16.0); MEAN CORPUSCULAR HEMOGLOBIN 28.6 pg (28.0-32.0); MEAN PLATELET VOLUME 9.7 fl (7.4-10.4); MONOCYTES % 7.9 % (2.0-8.0); PLATELET 185 x1000/uL (130-400)
[2023-05-03 17:43] LABS: PROTHROMBIN TIME 10.5 sec (9.6-11.0)
[2023-05-03 17:46] LABS: CHLORIDE 114 mEq/L (98-107)
[2023-05-03] MEDS ORDERED: DEXTROSE 50% WATER 50ML SYRINGE IV NR (19:15)
[2023-05-03] MEDS ORDERED: CALCIUM CHLORIDE 1GM/10ML SYR IV NR (19:15)
[2023-05-03] MEDS ORDERED: INSULIN REGULAR (HUMULIN R) 300UNITS/3ML VIAL IV NR (19:15)
[2023-05-03] MEDS ORDERED: ALBUTEROL (0.083%) 2.5MG/3ML NEB HHN NR (19:15)
[2023-05-03] MEDS: KETOROLAC 60MG/2ML VIAL IM ONE ×2 (20:00→20:14)
[2023-05-03 21:00] VITALS: PULSE 61; RESP 20; O2SAT 97
[2023-05-04 02:00] VITALS: BP 132/78; PULSE 71; RESP 16; TEMP 98.8
== END 2023-05-04 02:05 | disposition home or self-care (01) ==
LOC: ER 16:27
DX: R10.11 Right upper quadrant pain (principal); E11.9 Type 2 diabetes mellitus without complications; I10 Essential (primary) hypertension; Z86.73 Personal history of transient ischemic attack (TIA), and cerebral infarction without residual deficits
CPT/HCPCS: 80053; 83690; 85025; 85610; 36415; 93005; 94644; 96372; 96374; 96375; 99285; J3490; J1815; J1885; Z7610 ×3

== ENCOUNTER → 2023-06-18 | Day surgery (SDC) | payer MEDICAID ==
[~2023-06-18] VITALS: Ht 167.6 cm; Wt 90.7 kg
[~2023-06-18] MED LIST changes: +BUPIVACAINE HCL/PF 0.5% (5MG/ML) 10ML ONE; +CEFAZOLIN SODIUM 1000MG/VIAL ONE; +DEXAMETHASONE 4MG/ML 1ML VIAL ONE; +FENTANYL CITRATE/PF 50MCG/ML 2ML VIAL ONE; +FERR325T6 PO; +GLYCOPYRROLATE 0.2 MG/ML 2ML VIAL ONE; +HYDROCODONE/ACETAMINOPHEN 5/325MG TABLET PO NR; +HYDROMORPHONE HCL/PF 2MG/ML CPJ IV PRN; +HYDROMORPHONE HCL/PF 2MG/ML CPJ ONE; +INSU100I24 SQ; +LABETALOL 5MG/ML SYR 20 MG/4 ML SYRINGE IV PRN; +LIDOCAINE HCL 1% 10 MG/ML 10ML VIAL ONE; +LISI40TA13 PO; +MEPERIDINE HCL/PF 25MG/ML CPJ IV PRN; +MIDAZOLAM HCL 2 MG/2 ML VIAL ONE; +NEOSTIGMINE METHYLSULFATE 1MG/ML 10 ML VIAL ONE; +ONDANSETRON HCL 4MG/2ML INJ IV PRN; +OXYB5TAB17 PO; +PROPOFOL 200MG/20ML VIAL IV ONE; +ROCURONIUM BROMIDE 10MG/ML VIAL 5ML IV ONE; +SIMV-46 PO; +SKIN ADHESIVE 0.7 GM EA TOP ONE; +SODIUM CHLORIDE 0.9% 1,000 ML IV SCH; +SUCCINYLCHOLINE CHLORIDE 200MG/10ML IV ONE
[2023-06-18 11:16] VITALS: BP 141/72; PULSE 78; RESP 16
== END | disposition home or self-care (01) ==
LOC: OR 05:52
PROVIDERS: ATTEND Surgery
DX: Z45.2 Encounter for adjustment and management of vascular access device (principal); K80.10 Calculus of gallbladder with chronic cholecystitis without obstruction; Z79.82 Long term (current) use of aspirin; Z79.4 Long term (current) use of insulin; Z79.899 Other long term (current) drug therapy; Z98.890 Other specified postprocedural states; Z82.49 Family history of ischemic heart disease and other diseases of the circulatory system
CPT/HCPCS: 47562; 82962; 88304; 36573; J3010; J3490 ×4; J0690; J1100; J2250; J2704; J0330; J1170; J7030; C1725; J2710

== ENCOUNTER 2023-11-01 17:14 | Emergency (ER) | payer BC, MEDICAID, MEDICARE ==
[~2023-11-01] VITALS: Ht 167.6 cm; Wt 91.0 kg
[~2023-11-01 17:14] MED LIST changes: -ACET650S25 PO; -AMLO5TAB88 PO; -ASPI-1497 MT; -ATOR20TA MT; -BO1 TP; -BUPIVACAINE HCL/PF 0.5% (5MG/ML) 10ML ONE; -CARV3.1242 MT; -CEFAZOLIN SODIUM 1000MG/VIAL ONE; -CLOP75TA15 PO; -DEXAMETHASONE 4MG/ML 1ML VIAL ONE; -DOCU250C69 MT; -DOCU250C69 PO; -DULO30CA2 MT; -FENTANYL CITRATE/PF 50MCG/ML 2ML VIAL ONE; +FERR-63 PO; -FERR325T6 PO; -GABA-532 MT; -GLYCOPYRROLATE 0.2 MG/ML 2ML VIAL ONE; -HYDR-4009 MT; -HYDR25SU11 PR; -HYDROCODONE/ACETAMINOPHEN 5/325MG TABLET PO NR; -HYDROMORPHONE HCL/PF 2MG/ML CPJ IV PRN; -HYDROMORPHONE HCL/PF 2MG/ML CPJ ONE; -INSU100I24 SQ; -LABETALOL 5MG/ML SYR 20 MG/4 ML SYRINGE IV PRN; +LEVO-65 MT; -LIDOCAINE HCL 1% 10 MG/ML 10ML VIAL ONE; -MEPERIDINE HCL/PF 25MG/ML CPJ IV PRN; -MESA1000 PR; -METH-773 MT; -MIDAZOLAM HCL 2 MG/2 ML VIAL ONE; -NA P133E4 RC; -NEOSTIGMINE METHYLSULFATE 1MG/ML 10 ML VIAL ONE; +OMEP20CA14 PO; -ONDANSETRON HCL 4MG/2ML INJ IV PRN; -OXYB5TAB17 PO; +OXYB5TAB21 PO; -POLY17PO3 MT; -PROPOFOL 200MG/20ML VIAL IV ONE; -ROCURONIUM BROMIDE 10MG/ML VIAL 5ML IV ONE; -SENN-178 MT; +SIMV-345 PO; -SIMV-46 PO; -SKIN ADHESIVE 0.7 GM EA TOP ONE; -SODIUM CHLORIDE 0.9% 1,000 ML IV SCH; -SUCCINYLCHOLINE CHLORIDE 200MG/10ML IV ONE
[2023-11-01 17:24] VITALS: O2SAT 98
[2023-11-01] MEDS ORDERED: FAMOTIDINE 20MG TABLET PO ONE (18:30)
[2023-11-01] MEDS ORDERED: MAGNESIUM/ALUMINUM HYDROXIDE/SIMETHICONE 30ML UDC PO ONE (18:30)
[2023-11-01] MEDS ORDERED: KETOROLAC 15MG/ML VIAL IM ONE (18:30)
[2023-11-01 20:13] LABS: BASOPHILS % 0.1 % (0.0-2.0); EOSINOPHILS % 3.9 % (0.0-5.0); HEMATOCRIT. 32.3 % (36.0-48.0); HEMOGLOBIN. 10.7 g/dL (12.0-16.0); MEAN CORPUSCULAR HEMOGLOBIN 27.6 pg (28.0-32.0); MEAN CORPUSCULAR VOLUME 83.6 fL (81.0-99.0); MEAN PLATELET VOLUME 9.8 fl (7.4-10.4); MONOCYTES % 9.3 % (2.0-8.0); NEUTROPHILS % 49.7 % (40.0-76.0); PLATELET 191 x1000/uL (130-400); RED BLOOD CELL COUNT 3.87 mill/uL (4.2-5.4); RED CELL DISTRIBUTION WIDTH 13.7 % (11.6-14.6)
[2023-11-01 20:27] LABS: ALANINE AMINOTRANSFERASE < 7 IU/L (10-49); ALBUMIN 3.7 g/dL (3.2-4.8); ASPARTATE AMINOTRANSFERASE 8 IU/L (<34); BILIRUBIN TOTAL < 0.2 mg/dL (0.1-1.0); CALCIUM 9.1 mg/dL (8.7-10.4); CARBON DIOXIDE 26 mEq/L (21-32); CHLORIDE 108 mEq/L (98-107); CREATININE 1.1 mg/dL (0.6-1.0); GLUCOSE 158 mg/dL (70-105); PROTEIN TOTAL 6.8 g/dL (6.0-8.3); SODIUM 142 mEq/L (136-145); UREA NITROGEN BLOOD 32 mg/dL (9-23)
[2023-11-01 20:32] LABS: PROTHROMBIN TIME 10.8 sec (9.6-11.0)
[2023-11-02 09:59] VITALS: BP 138/70; PULSE 71; RESP 15; TEMP 97.3
== END 2023-11-02 10:03 | disposition home or self-care (01) ==
LOC: ER 17:14
DX: R10.84 Generalized abdominal pain (principal); E11.9 Type 2 diabetes mellitus without complications; I10 Essential (primary) hypertension; Z79.899 Other long term (current) drug therapy
CPT/HCPCS: 99285; 74176; 80053; 83690; 85025; 85610; 36415; 96372; J1885

== ENCOUNTER 2023-11-10 13:39 | Emergency (ER) | payer BC, MEDICAID, MEDICARE ==
[~2023-11-10] VITALS: Ht 157.5 cm; Wt 80.0 kg
[2023-11-10 13:41] VITALS: O2SAT 97
[2023-11-10] MEDS ORDERED: SODIUM CHLORIDE 0.9% 1,000 ML IV ONE (13:45)
[2023-11-10 14:41] LABS: BASOPHILS % 0.3 % (0.0-2.0); EOSINOPHILS % 4.4 % (0.0-5.0); HEMATOCRIT. 34.2 % (36.0-48.0); HEMOGLOBIN. 10.9 g/dL (12.0-16.0); LYMPHOCYTES % 33.6 % (20.0-50.0); MEAN CORPUSCULAR HEMOGLOBIN 26.7 pg (28.0-32.0); MEAN CORPUSCULAR HGB CONC 31.9 g/dL (31.0-37.0); MEAN CORPUSCULAR VOLUME 83.7 fL (81.0-99.0); MEAN PLATELET VOLUME 10.1 fl (7.4-10.4); MONOCYTES % 9.3 % (2.0-8.0); NEUTROPHILS % 52.4 % (40.0-76.0); PLATELET 200 x1000/uL (130-400); RED BLOOD CELL COUNT 4.09 mill/uL (4.2-5.4); WHITE BLOOD COUNT 4.3 x1000/uL (4.5-11.0)
[2023-11-10 14:51] LABS: PROTHROMBIN TIME 11.2 sec (9.6-11.0)
[2023-11-10 14:53] LABS: ALANINE AMINOTRANSFERASE < 7 IU/L (10-49); ASPARTATE AMINOTRANSFERASE 11 IU/L (<34); BILIRUBIN TOTAL 0.3 mg/dL (0.1-1.0); CALCIUM 9.7 mg/dL (8.7-10.4); CARBON DIOXIDE 26 mEq/L (21-32); CHLORIDE 111 mEq/L (98-107); CREATININE 0.8 mg/dL (0.6-1.0); GLUCOSE 103 mg/dL (70-105); POTASSIUM 4.3 mEq/L (3.5-5.1); PROTEIN TOTAL 6.7 g/dL (6.0-8.3); SODIUM 141 mEq/L (136-145); UREA NITROGEN BLOOD 18 mg/dL (9-23)
[2023-11-10] MEDS ORDERED: KETOROLAC 30MG/ML VIAL IV ONE (18:00)
[2023-11-10] MEDS ORDERED: KETOROLAC 30MG/ML VIAL IM ONE (20:30)
[2023-11-11 03:02] VITALS: TEMP 98.1
[2023-11-11 11:57] VITALS: BP 142/76; PULSE 76; RESP 18
== END 2023-11-11 12:40 | disposition home or self-care (01) ==
LOC: ER 13:43
DX: R10.30 Lower abdominal pain, unspecified (principal); K40.90 Unilateral inguinal hernia, without obstruction or gangrene, not specified as recurrent; E11.9 Type 2 diabetes mellitus without complications; I10 Essential (primary) hypertension; Z79.899 Other long term (current) drug therapy
CPT/HCPCS: 99285; 74176; 80053; 83605; 83690; 85025; 85610; 36415; 96372; J1885; J7030

== ENCOUNTER 2024-04-29 10:30 | Emergency (ER) | payer MEDICARE, OTHER ==
[~2024-04-29] VITALS: Ht 157.5 cm; Wt 73.0 kg
[2024-04-29 10:35] VITALS: TEMP 98.6; O2SAT 99
[2024-04-29 17:49] VITALS: BP 145/87; PULSE 75; RESP 17
== END 2024-04-29 18:20 | disposition home or self-care (01) ==
LOC: ER 10:30
DX: T17.828A Food in other parts of respiratory tract causing other injury, initial encounter (principal); E11.9 Type 2 diabetes mellitus without complications; I10 Essential (primary) hypertension; Z98.890 Other specified postprocedural states; X58.XXXA Exposure to other specified factors, initial encounter; Y93.89 Activity, other specified; Y92.89 Other specified places as the place of occurrence of the external cause; Y99.8 Other external cause status
CPT/HCPCS: 70360; 99283

== ENCOUNTER 2024-06-08 14:15 | Emergency (ER) | payer MEDICARE ==
[~2024-06-08] VITALS: Ht 129.5 cm; Wt 100.0 kg
[2024-06-08 14:17] VITALS: TEMP 97.6; O2SAT 96
[2024-06-08 15:01] LABS: BASOPHILS % 0.9 % (0.0-2.0); EOSINOPHILS % 4.3 % (0.0-5.0); HEMATOCRIT. 32.6 % (36.0-48.0); HEMOGLOBIN. 10.6 g/dL (12.0-16.0); LYMPHOCYTES % 29.1 % (20.0-50.0); MEAN CORPUSCULAR HEMOGLOBIN 27.3 pg (28.0-32.0); MEAN CORPUSCULAR HGB CONC 32.6 g/dL (31.0-37.0); MEAN CORPUSCULAR VOLUME 83.6 fL (81.0-99.0); MEAN PLATELET VOLUME 9.8 fl (7.4-10.4); NEUTROPHILS % 56.7 % (40.0-76.0); PLATELET 254 x1000/uL (130-400); RED CELL DISTRIBUTION WIDTH 13.5 % (11.6-14.6); WHITE BLOOD COUNT 5.7 x1000/uL (4.5-11.0)
[2024-06-08 15:07] LABS: CHLORIDE 106 mEq/L (98-107); POTASSIUM 4.4 mEq/L (3.5-5.1); SODIUM 137 mEq/L (136-145)
[2024-06-08 15:08] LABS: CALCIUM 9.6 mg/dL (8.7-10.4); CARBON DIOXIDE 24 mEq/L (21-32)
[2024-06-08 15:11] LABS: PROTHROMBIN TIME 11.4 sec (9.6-11.0)
[2024-06-08 15:13] LABS: CREATININE 1.1 mg/dL (0.6-1.0); GLUCOSE 276 mg/dL (70-105); UREA NITROGEN BLOOD 24 mg/dL (9-23)
[2024-06-08 15:14] LABS: TROPONIN I HIGH SENSITIVITY 5 ng/L (3.0-34)
[2024-06-08 15:15] LABS: ALANINE AMINOTRANSFERASE < 7 IU/L (10-49); ALBUMIN 4.2 g/dL (3.2-4.8); ASPARTATE AMINOTRANSFERASE 10 IU/L (<34); BILIRUBIN TOTAL 0.2 mg/dL (0.1-1.0); PROTEIN TOTAL 7.1 g/dL (6.0-8.3)
[2024-06-08 15:17] LABS: BILIRUBIN DIRECT < 0.1 mg/dL (<=3.0)
[2024-06-08] MEDS: IOHEXOL-300 100 ML BOTTLE ONE ×2 (16:50→18:55)
[2024-06-08] MEDS ORDERED: SODIUM CHLORIDE 0.9% 500 ML IV NR (17:00)
[2024-06-08 18:54] LABS: CLARITY URINE CLEAR (CLEAR); COLOR URINE YELLOW (YELLOW); GLUCOSE URINE TRACE (NEGATIVE); KETONES URINE NEGATIVE (NEGATIVE); LEUKOCYTE ESTERASE URINE NEGATIVE (NEGATIVE); NITRITE URINE NEGATIVE (NEGATIVE); OCCULT BLOOD URINE 1+ (NEGATIVE); PH URINE 5.5 (4.5-8.0); PROTEIN URINE 2+ (NEGATIVE); UROBILINOGEN URINE 0.2 E.U./dL (0.2-1.0)
[2024-06-08 19:30] LABS: TROPONIN I HIGH SENSITIVITY 6 ng/L (3.0-34)
[2024-06-08 19:33] LABS: WBC URINE 0-2 /hpf (0-2)
[2024-06-08 19:34] LABS: BACTERIA URINE TRACE; RBC URINE 0-2 /hpf (0-2); SQUAMOUS EPITHELIAL CELL URINE FEW /lpf (RARE/1+)
[2024-06-09 02:56] VITALS: BP 153/93; PULSE 72; RESP 16
== END 2024-06-09 03:25 | disposition home or self-care (01) ==
LOC: ER 14:20
DX: R10.31 Right lower quadrant pain (principal); E11.9 Type 2 diabetes mellitus without complications; I10 Essential (primary) hypertension; Z79.899 Other long term (current) drug therapy
CPT/HCPCS: 99291; 74177; 80076; 80048; 81003; 83690; 85025; 85610; 84484; 36415; 71045; 93005; Q9967

== ENCOUNTER 2024-06-09 20:51 | Inpatient (IN) | payer MEDICARE, OTHER ==
[~2024-06-09] VITALS: Ht 152.4 cm; Wt 90.3 kg
[2024-06-09 21:54] LABS: BASOPHILS % 0.2 % (0.0-2.0); EOSINOPHILS % 1.9 % (0.0-5.0); HEMATOCRIT. 33.6 % (36.0-48.0); HEMOGLOBIN. 11.2 g/dL (12.0-16.0); LYMPHOCYTES % 16.7 % (20.0-50.0); MEAN CORPUSCULAR HEMOGLOBIN 27.6 pg (28.0-32.0); MEAN CORPUSCULAR HGB CONC 33.2 g/dL (31.0-37.0); MEAN CORPUSCULAR VOLUME 82.9 fL (81.0-99.0); MEAN PLATELET VOLUME 9.6 fl (7.4-10.4); MONOCYTES % 8.6 % (2.0-8.0); NEUTROPHILS % 72.6 % (40.0-76.0); PLATELET 254 x1000/uL (130-400); RED BLOOD CELL COUNT 4.05 mill/uL (4.2-5.4); RED CELL DISTRIBUTION WIDTH 13.5 % (11.6-14.6); WHITE BLOOD COUNT 7.9 x1000/uL (4.5-11.0)
[2024-06-09 21:58] LABS: CARBON DIOXIDE 23 mEq/L (21-32); CHLORIDE 104 mEq/L (98-107); POTASSIUM 4.1 mEq/L (3.5-5.1); SODIUM 134 mEq/L (136-145)
[2024-06-09 21:59] LABS: CALCIUM 9.8 mg/dL (8.7-10.4)
[2024-06-09 22:03] LABS: CREATININE 1.1 mg/dL (0.6-1.0); GLUCOSE 236 mg/dL (70-105)
[2024-06-09 22:04] LABS: UREA NITROGEN BLOOD 18 mg/dL (9-23)
[2024-06-09 22:05] LABS: ALANINE AMINOTRANSFERASE < 7 IU/L (10-49); ALBUMIN 4.3 g/dL (3.2-4.8); ASPARTATE AMINOTRANSFERASE 10 IU/L (<34)
[2024-06-09 22:06] LABS: BILIRUBIN TOTAL 0.3 mg/dL (0.1-1.0); PROTEIN TOTAL 7.5 g/dL (6.0-8.3); TROPONIN I HIGH SENSITIVITY 7 ng/L (3.0-34)
[2024-06-09 22:13] LABS: BILIRUBIN DIRECT < 0.1 mg/dL (<=3.0)
[2024-06-09] MEDS: ONDANSETRON HCL 4MG/2ML INJ IV ONE (22:14)
[2024-06-09] MEDS: ASPIRIN 325MG TABLET PO ONE (22:21)
[2024-06-09] MEDS: MORPHINE SULFATE 4 MG/ML INJ (FOR IV/IM USE) IV ONE (22:21)
[2024-06-09] MEDS ORDERED: DEXTROSE 50% WATER 50ML SYRINGE IV PRN (23:15)
[2024-06-09] MEDS ORDERED: IPRATROPIUM/ALBUTEROL 0.5-3(2.5)MG/3ML NEB HHN PRN (23:15)
[2024-06-09] MEDS ORDERED: MAGNESIUM/ALUMINUM HYDROXIDE/SIMETHICONE 30ML UDC PO PRN (23:15)
[2024-06-09] MEDS: PANTOPRAZOLE SODIUM 40 MG/VIAL IV SCH (23:39)
[2024-06-09] MEDS: LACTATED RINGERS 1,000 ML IV SCH (23:41)
[2024-06-09] MEDS: HYDRALAZINE 20MG/ML VIAL IV PRN (23:49)
[2024-06-10 00:11] LABS: TROPONIN I HIGH SENSITIVITY 5 ng/L (3.0-34)
[2024-06-10] MEDS: LISINOPRIL 40MG TABLET PO SCH (04:55)
[2024-06-10] MEDS: BLOOD SUGAR DIAGNOSTIC STRIP TEST SCH (07:05)
[2024-06-10] MEDS: INSULIN LISPRO 100 UNITS/ML SUBCUT SCH (07:08)
[2024-06-10] MEDS: ASPIRIN 81MG EC TABLET PO SCH (09:00)
[2024-06-10 10:52] LABS: BASOPHILS % 0.2 % (0.0-2.0); EOSINOPHILS % 1.2 % (0.0-5.0); HEMOGLOBIN. 11.2 g/dL (12.0-16.0); LYMPHOCYTES % 18.4 % (20.0-50.0); MEAN CORPUSCULAR HGB CONC 32.1 g/dL (31.0-37.0); MEAN PLATELET VOLUME 9.9 fl (7.4-10.4); MONOCYTES % 9.7 % (2.0-8.0); NEUTROPHILS % 70.5 % (40.0-76.0); PLATELET 262 x1000/uL (130-400); RED BLOOD CELL COUNT 4.17 mill/uL (4.2-5.4); RED CELL DISTRIBUTION WIDTH 13.6 % (11.6-14.6); WHITE BLOOD COUNT 6.4 x1000/uL (4.5-11.0)
[2024-06-10 11:09] LABS: CALCIUM 9.7 mg/dL (8.7-10.4); POTASSIUM 4.6 mEq/L (3.5-5.1)
[2024-06-10 11:14] LABS: TROPONIN I HIGH SENSITIVITY 4 ng/L (3.0-34)
[2024-06-10 11:15] LABS: CREATININE 1.3 mg/dL (0.6-1.0)
[2024-06-10 11:16] LABS: CREATINE KINASE 39 IU/L (34-145)
[2024-06-10 11:17] LABS: T4 FREE 1.41 ng/dL (0.89-1.76); THYROID STIMULATING HORMONE 0.81 uIU/mL (0.55-4.78)
[2024-06-10 16:01] LABS: CREATINE KINASE 36 IU/L (34-145); TROPONIN I HIGH SENSITIVITY < 4 ng/L (3.0-34)
[2024-06-10 16:45] VITALS: BP 139/77; PULSE 75; RESP 20; TEMP 98
[2024-06-10] MEDS: ONDANSETRON HCL 4MG/2ML INJ IV PRN (17:05)
[2024-06-10] MEDS: ENOXAPARIN 30MG/0.3ML SYR SUBCUT SCH (17:55)
[2024-06-10 20:00] VITALS: PULSE 74; RESP 16
[2024-06-10] MEDS: ATORVASTATIN CALCIUM 40MG TABLET PO SCH (21:38)
[2024-06-10 21:44] VITALS: BP 106/85; PULSE 77; RESP 19; TEMP 98.2
[2024-06-10] MEDS: ACETAMINOPHEN 325MG TABLET PO PRN (21:56)
[2024-06-11] VITALS (10 sets, daily range): BP systolic 84–161; BP diastolic 54–82; PULSE 66–77; RESP 12–19; TEMP 97.8–98.7
[2024-06-11] MEDS: DIPHENHYDRAMINE 25MG CAPSULE PO NR (00:22)
[2024-06-11] MEDS: FAMOTIDINE 20MG/2ML VIAL IV SCH (08:43)
[2024-06-11 08:59] LABS: HEMATOCRIT 33.2 % (36.0-48.0); HEMOGLOBIN 10.4 g/dL (12.0-16.0); MEAN CORPUSCULAR HEMOGLOBIN 26.4 pg (28.0-32.0); MEAN CORPUSCULAR HGB CONC 31.5 g/dL (31.0-37.0); MEAN CORPUSCULAR VOLUME 84.1 fL (81.0-99.0); PLATELET 240 x1000/uL (130-400); RED BLOOD CELL COUNT 3.94 mill/uL (4.2-5.4); RED CELL DISTRIBUTION WIDTH 13.8 % (11.6-14.6); WHITE BLOOD COUNT 4.9 x1000/uL (4.5-11.0)
[2024-06-11 09:13] LABS: CALCIUM 9.2 mg/dL (8.7-10.4); CARBON DIOXIDE 22 mEq/L (21-32); CHLORIDE 105 mEq/L (98-107); POTASSIUM 4.3 mEq/L (3.5-5.1); SODIUM 136 mEq/L (136-145)
[2024-06-11 09:17] LABS: ALANINE AMINOTRANSFERASE < 7 IU/L (10-49); ASPARTATE AMINOTRANSFERASE 8 IU/L (<34)
[2024-06-11 09:18] LABS: ALBUMIN 3.9 g/dL (3.2-4.8); GLUCOSE 155 mg/dL (70-105)
[2024-06-11 09:19] LABS: UREA NITROGEN BLOOD 24 mg/dL (9-23)
[2024-06-11 09:20] LABS: BILIRUBIN TOTAL 0.3 mg/dL (0.1-1.0); PROTEIN TOTAL 6.7 g/dL (6.0-8.3)
[2024-06-11 11:20] LABS: CLARITY URINE CLEAR (CLEAR); COLOR URINE YELLOW (YELLOW); GLUCOSE URINE NEGATIVE (NEGATIVE); KETONES URINE NEGATIVE (NEGATIVE); LEUKOCYTE ESTERASE URINE 1+ (NEGATIVE); NITRITE URINE NEGATIVE (NEGATIVE); OCCULT BLOOD URINE 1+ (NEGATIVE); PROTEIN URINE 2+ (NEGATIVE)
[2024-06-11 11:44] LABS: BACTERIA URINE 2+; SQUAMOUS EPITHELIAL CELL URINE 1+ /lpf (RARE/1+); YEAST URINE NONE SEEN
[2024-06-11 11:54] LABS: SODIUM URINE RANDOM 46 mEq/L
[2024-06-11 11:59] LABS: PROTEIN URINE RANDOM 123 mg/dL
[2024-06-11 12:01] LABS: *AMPHETAMINES SCREEN URINE NEGATIVE (NEGATIVE); *BARBITURATES SCREEN URINE NEGATIVE (NEGATIVE); *BENZODIAZEPINES SCREEN URINE NEGATIVE (NEGATIVE); *COCAINE SCREEN URINE NEGATIVE (NEGATIVE); CANNABINOID URINE SCREEN NEGATIVE (NEGATIVE); CREATININE URINE RANDOM 131.8 mg/dL; ECSTASY MDMA SCREEN URINE NEGATIVE (NEGATIVE); METHADONE URINE SCREEN NEGATIVE (NEGATIVE); OPIATES URINE SCREEN PRESUMPTIVE POSITIVE (NEGATIVE); PHENCYCLIDINE URINE SCREEN NEGATIVE (NEGATIVE)
[2024-06-11] MEDS ORDERED: CEFTRIAXONE 250 MG in DEXTROSE 5% WATER 50 ML IV SCH (12:15)
[2024-06-11 15:05] LABS: CREATINE KINASE 36 IU/L (34-145)
[2024-06-11 15:44] LABS: OSMOLALITY URINE 445 mOsm/kg (500-850)
[2024-06-11] MEDS: INSULIN LISPRO 100 UNITS/ML SUBCUT SCH (15:45)
[2024-06-11] MEDS: CEFTRIAXONE 1GM/50ML 50ML IV SCH (16:25)
[2024-06-11] MEDS: NYSTATIN POWDER 15GM TOP SCH (22:02)
[2024-06-12] VITALS: BP 125/81; PULSE 69; RESP 15; TEMP 98.2
[2024-06-12] MEDS: DIPHENHYDRAMINE 25MG CAPSULE PO NR (02:11)
[2024-06-12 04:00] VITALS: BP 106/64; PULSE 80; RESP 14; TEMP 98.1
[2024-06-12 08:00] VITALS: BP 116/69; PULSE 73; RESP 15; TEMP 98
[2024-06-12] MEDS: SODIUM CHLORIDE 0.45% 1,000 ML IV SCH (08:57)
[2024-06-12 12:00] VITALS: BP 120/91; PULSE 77; RESP 14; TEMP 98.2
[2024-06-12] MEDS ORDERED: LINA5TAB PO (12:21)
[2024-06-12 15:51] VITALS: BP 120/91; PULSE 77; TEMP 98.2; O2SAT 99
[2024-06-12 17:42] LABS: HEMATOCRIT 32.8 % (36.0-48.0); HEMOGLOBIN 10.6 g/dL (12.0-16.0); MEAN CORPUSCULAR HGB CONC 32.2 g/dL (31.0-37.0); MEAN CORPUSCULAR VOLUME 83.9 fL (81.0-99.0); PLATELET 237 x1000/uL (130-400); RED BLOOD CELL COUNT 3.91 mill/uL (4.2-5.4); RED CELL DISTRIBUTION WIDTH 13.5 % (11.6-14.6); WHITE BLOOD COUNT 5.2 x1000/uL (4.5-11.0)
[2024-06-12 17:44] LABS: CARBON DIOXIDE 22 mEq/L (21-32); CHLORIDE 108 mEq/L (98-107); POTASSIUM 4.8 mEq/L (3.5-5.1); SODIUM 138 mEq/L (136-145)
[2024-06-12 17:45] LABS: CALCIUM 9.6 mg/dL (8.7-10.4)
[2024-06-12 17:49] LABS: CREATININE 1.4 mg/dL (0.6-1.0)
[2024-06-12 17:50] LABS: GLUCOSE 133 mg/dL (70-105); UREA NITROGEN BLOOD 21 mg/dL (9-23)
[2024-06-12 17:51] LABS: ALANINE AMINOTRANSFERASE < 7 IU/L (10-49); ASPARTATE AMINOTRANSFERASE 12 IU/L (<34)
[2024-06-12 17:52] LABS: ALBUMIN 4.2 g/dL (3.2-4.8); BILIRUBIN TOTAL 0.2 mg/dL (0.1-1.0)
== END 2024-06-12 19:18 | disposition home or self-care (01) | DRG 637 ==
LOC: ER 20:51 → 5WST 22:36 → 3WST 06-10 16:17
PROVIDERS: ADMIT Internal Medicine; ATTEND Internal Medicine
DX: E11.65 Type 2 diabetes mellitus with hyperglycemia (principal); L89.153 Pressure ulcer of sacral region, stage 3; N17.0 Acute kidney failure with tubular necrosis; N39.0 Urinary tract infection, site not specified; E86.0 Dehydration; I12.9 Hypertensive chronic kidney disease with stage 1 through stage 4 chronic kidney disease, or unspecified chronic kidney disease; D63.8 Anemia in other chronic diseases classified elsewhere; E78.5 Hyperlipidemia, unspecified; R94.31 Abnormal electrocardiogram [ECG] [EKG]; E11.22 Type 2 diabetes mellitus with diabetic chronic kidney disease; N18.9 Chronic kidney disease, unspecified; Z89.512 Acquired absence of left leg below knee; Z79.899 Other long term (current) drug therapy; Z89.511 Acquired absence of right leg below knee; Z90.49 Acquired absence of other specified parts of digestive tract; Z79.82 Long term (current) use of aspirin; Z86.73 Personal history of transient ischemic attack (TIA), and cerebral infarction without residual deficits; Z83.3 Family history of diabetes mellitus; Z82.49 Family history of ischemic heart disease and other diseases of the circulatory system; Z74.01 Bed confinement status
CPT/HCPCS: 36415; 71045; 74018; 74176; 74177; 76770; 80048; 80053; 80061; 80076; 80305; 81003; 82550; 82570; 82962; 83036; 83930; 83935; 84156; 84300; 84439; 84443; 84484; 85025; 85027; 93005; 97166; 99291; J0360; J0696; J1650; J1815; J2270; J2405; J2470; J3490; J7120; Q0163; Q9967